=== PATIENT | female | born 1970 | race Caucasian/White ===

== ENCOUNTER 2020-10-31 09:50 | Outpatient (REF) | payer OTHER, SELFPAY ==
--- NOTE | ~2020-10-31 | XR_ITS ---
EXAMINATION: CERVICAL AND LUMBAR SPINE X-RAY CLINICAL INFORMATION: Pain COMPARISON: Lumbar spine x-ray March 2018 TECHNIQUE: 3 views of the lumbar spine and 3 views of the cervical spine FINDINGS: Cervical spine: Bone alignment is normal. No fracture or dislocation is seen. Disc spaces are normal. Prevertebral soft tissues are normal. Lumbar spine: There is mild curvature of the lower lumbar sacral spine to the left. Bone alignment is otherwise normal. No fracture or dislocation is seen. Disc spaces are normal. There may be mild lower lumbar spine facet arthritis. Paraspinal soft tissues are normal. XR/XR cervical spine 3V IMPRESSION: Cervical spine: Unremarkable exam. Lumbar spine: Mild curvature of the lower lumbar sacral spine to the left and lower lower lumbar spine facet arthritis.
--- NOTE | ~2020-10-31 | XR_ITS ---
EXAMINATION: CERVICAL AND LUMBAR SPINE X-RAY CLINICAL INFORMATION: Pain COMPARISON: Lumbar spine x-ray March 2018 TECHNIQUE: 3 views of the lumbar spine and 3 views of the cervical spine FINDINGS: Cervical spine: Bone alignment is normal. No fracture or dislocation is seen. Disc spaces are normal. Prevertebral soft tissues are normal. Lumbar spine: There is mild curvature of the lower lumbar sacral spine to the left. Bone alignment is otherwise normal. No fracture or dislocation is seen. Disc spaces are normal. There may be mild lower lumbar spine facet arthritis. Paraspinal soft tissues are normal. XR/XR lumbar spine 2-3V IMPRESSION: Cervical spine: Unremarkable exam. Lumbar spine: Mild curvature of the lower lumbar sacral spine to the left and lower lower lumbar spine facet arthritis.
--- NOTE | 2020-10-31 10:17 | ECG_ITS ---
Test Reason : PALPITATIONS Blood Pressure : / mmHG Vent. Rate : 057 BPM Atrial Rate : 057 BPM P-R Int : 164 ms QRS Dur : 078 ms QT Int : 466 ms P-R-T Axes : 017 054 056 degrees QTc Int : 453 ms Sinus bradycardia Otherwise normal ECG No previous ECGs available Referred By: Ju Hernandez Electronically Signed By:AURELIA MEDINA
[2020-10-31 11:36] LABS: TSH reflex Free T4 1.04 uIU/mL (0.32-4.0)
[2020-10-31 12:28] LABS: Glucose Urine UA NEG (NEG); Leukocyte Esterase Urine NEG (NEG); Nitrite Urine NEG (NEG); Urine Blood NEG (NEG); Urine Ketones NEG (NEG); Urine Protein NEG (NEG-TRACE)
[2020-10-31 12:29] LABS: Appearance Urine CLEAR; Color Urine YELLOW
== END 2020-10-31 09:51 | disposition home or self-care (01) ==
LOC: HO.LAB 09:50
PROVIDERS: PCP Internal Medicine; Visit Provider Internal Medicine
DX: R00.2 Palpitations (principal); M54.2 Cervicalgia; N39.3 Stress incontinence (female) (male); M54.5 Low back pain
CPT/HCPCS: 36415; 72040; 72100; 81003; 84443; 93005

== ENCOUNTER → 2020-12-06 15:27 | Outpatient (BNVA) | payer OTHER, SELFPAY | PROVIDERS: PCP Internal Medicine; Visit Provider Urology | DX: N39.3 Stress incontinence (female) (male) (principal) | CPT/HCPCS: 99202 ==

== ENCOUNTER 2020-12-21 13:55 | Outpatient (RCR) | payer OTHER, SELFPAY ==
--- NOTE | 2020-12-21 15:31 | MHC.PT.EP ---
[facility] [place] Office [place] Office [place] Office [address] Beulah Walls 140 [facility] [phone] F: [phone] F: [phone] F: [phone] F: [phone] Physical Therapy Plan of Care Date of Evaluation: Date of Surgery: Diagnosis: stress urinary incontinence Assessment: The patient arrived reporting stress urinary incontinence, but also described symptoms of urge incontinence. After granted patient consent an internal exam was performed and the patient was found to have decreased strength and coordination of her pelvic floor muscles. Increased Stage 2 Urethrocele noted with more descent in standing but it remained a stage 2. Additionally, the patient had poor PF endurance, and decreased ability to do a quick contraction of her pelvic floor. She did not exhibit a pre activation of her PFM with a cough. Strength 2/5 in 3rd level. The 1st level was 4/5. Urethra is at the introitus and then making penetration painful. The patient had no pain internally in the pelvic clock except near the urethra. The patient had poor endurance and the contraction dissipated after 3 seconds. She was able to do quick contractions, but with slow reaction time. 5 contractions in 10 seconds. Poor kinesthetic awareness of pelvic floor muscles. The patient will greatly benefit from Pelvic Floor PT in order to improve coordination, and strength of her pelvic floor muscles, as well as body mechanics training with pre activation of her PFM, Pre activation of her PFM for coughing, sneezing, and laughing when possible. Frequency and Duration: The patient will be seen 1x/week x 6 weeks Short Term Goals: 1. Pt to be able to correctly activate her PFM to allow improved support to bowel and bladder. 2. Pt to be able to demonstrate a pre contraction before a cough 3. Pt to be educated on bladder irritants in order to decrease UI triggers 4. Pt to complete a voiding log in order to accurately assess her bladder habits 5. Pt to be educated on behavior training to help decrease urge incontinence. Engraver Set Up Operator Goals: 1. The patient to be able to report no pain in her pelvis during house chore, and ADL's to help return to PLOF. 2. Pt to be able to improve PFM contraction to include a lift in the PFM to improve supportive function of the pelvic floor. 3. Pt to be able to return to normal sexual activity without pain. Treatment Plan: Modalities to reduce pain, spasms and effusion. Manual therapy to restore motion and function. Therapeutic exercise to improve strength and flexibility. Neuromuscular re-education for posture and balance. Therapeutic activities to return to functional activities of daily living. Electronically signed by: Monika Colindres PT DPT Please sign and return to therapist. Thank you for your referral.
== END 2020-12-28 08:00 | disposition home or self-care (01) ==
LOC: HO.PT 13:55
PROVIDERS: Visit Provider Urology
DX: M54.2 Cervicalgia (principal); M54.5 Low back pain
CPT/HCPCS: 97110; 97112; 97161

== ENCOUNTER 2021-04-08 11:01 | Outpatient (REF) | payer OTHER, SELFPAY ==
[2021-04-08 11:45] LABS: MANUAL DIFF FLAG NO
[2021-04-08 11:48] LABS: Basophils Percent Auto 0.4 % (0-2); Eosinophils Absolute Auto 0.1 X10*3/uL (0.0-0.4); Eosinophils Percent Auto 1.1 % (0-4); Hematocrit 41.5 % (37-47); Hemoglobin 13.1 g/dl (12.0-16.0); Imm Gran Abs Auto 0.01 X10*3/uL (0.00-0.03); Imm Gran Pct Auto 0.2 % (0.0-0.4); Lymphocytes Absolute Auto 0.9 X10*3/uL (1.2-4.9); Mean Corpuscular HGB Conc 31.6 g/dl (31.0-35.0); Mean Corpuscular Hemoglobin 26.1 pg (27.0-33.0); Mean Corpuscular Volume 82.8 fL (80-98); Mean Platelet Volume 9.8 fL (9.4-12.3); Monocytes Absolute Auto 0.3 X10*3/uL (0.1-1.2); Monocytes Percent Auto 6.3 % (2-11); Neutrophils Absolute Auto 3.3 X10*3/uL (2.0-8.3); Platelet Count 294 X10*3/uL (160-400); Red Blood Count 5.01 X10*6/uL (4.20-5.50); Red Cell Distribution Width 13.1 % (11.0-16.0); White Blood Count 4.6 X10*3/uL (4.8-10.8)
[2021-04-08 12:24] LABS: Alanine Aminotransferase 14 U/L (0-31); Albumin Level 4.2 g/dL (3.5-5.0); Alkaline Phosphatase 57 U/L (39-117); Anion Gap 12 (12-20); Aspartate Amino Transferase 16 U/L (5-31); Bilirubin Total 0.7 mg/dL (0.0-1.0); Blood Urea Nitrogen 9 mg/dL (9-16); Calcium 9.5 mg/dL (8.4-10.2); Carbon Dioxide 29 mmol/L (22-29); Chloride 105 mmol/L (96-108); Cholesterol 149 mg/dL; Estimated Glomerular Filt Rate > 60; Glucose Fasting 93 mg/dL (60-99); HDL Cholesterol 53 mg/dL; Iron 96 mcg/dL (30-160); LDL Cholesterol Calculated 81 mg/dl; Percent Iron Saturation 34 % (15-50); Potassium 4.5 mmol/L (3.3-5.1); Sodium 141 mmol/L (135-145); Total Iron Binding Capacity 284 mcg/dL (228-428); Total Protein 7.4 g/dL (6.5-8.0); Triglycerides 75 mg/dL; Unsaturated Iron Binding 188 ug/dL
[2021-04-08 12:59] LABS: Folate 13.4 ng/mL (> or = 4.0); Vitamin B12 303 pg/mL (200-900)
[2021-04-12 13:55] LABS: Vitamin D 25-OH, D2 <4 ng/mL; Vitamin D 25-OH, D3 34 ng/mL; Vitamin D 25-OH, Total 34 ng/mL (30-100)
== END 2021-04-08 11:02 | disposition home or self-care (01) ==
LOC: HO.LAB 11:01
PROVIDERS: PCP Internal Medicine; Visit Provider Internal Medicine
DX: E78.5 Hyperlipidemia, unspecified (principal); D64.9 Anemia, unspecified; E55.9 Vitamin D deficiency, unspecified; F32.9 Major depressive disorder, single episode, unspecified; E53.8 Deficiency of other specified B group vitamins
CPT/HCPCS: 36415; 80053; 80061; 82306; 82607; 82746; 83540; 85025

== ENCOUNTER 2021-06-19 11:13 | Outpatient (REF) | payer OTHER, SELFPAY ==
[2021-06-19 11:40] LABS: MANUAL DIFF FLAG NO
[2021-06-19 11:54] LABS: Basophils Percent Auto 0.4 % (0-2); Eosinophils Absolute Auto 0.1 X10*3/uL (0.0-0.4); Eosinophils Percent Auto 2.7 % (0-4); Hematocrit 39.9 % (37.0-47.0); Hemoglobin 12.7 g/dl (12.0-16.0); Imm Gran Abs Auto 0.02 X10*3/uL (0.00-0.03); Imm Gran Pct Auto 0.4 % (0.0-0.4); Lymphocytes Absolute Auto 0.7 X10*3/uL (1.2-4.9); Lymphocytes Percent Auto 15.1 % (20-40); Mean Corpuscular HGB Conc 31.8 g/dl (31.0-35.0); Mean Corpuscular Hemoglobin 26.1 pg (27.0-33.0); Mean Corpuscular Volume 81.9 fL (80.0-98.0); Mean Platelet Volume 9.4 fL (9.4-12.3); Monocytes Absolute Auto 0.4 X10*3/uL (0.1-1.2); Monocytes Percent Auto 8.1 % (2-11); Neutrophils Absolute Auto 3.3 x10*3/uL (2.0-8.3); Neutrophils Percent Auto 73.3 % (45-73); Platelet Count 249 X10*3/uL (160-400); Red Blood Count 4.87 X10*6/uL (4.20-5.50); Red Cell Distribution Width 13.2 % (11.0-16.0); White Blood Count 4.5 X10*3/uL (4.8-10.8)
[2021-06-19 12:29] LABS: Iron 64 mcg/dL (30-160); Percent Iron Saturation 21 % (15-50); Total Iron Binding Capacity 310 mcg/dL (228-428); Unsaturated Iron Binding 246 ug/dL
[2021-06-19 12:57] LABS: Folate 14.9 ng/mL (> or = 4.0); Vitamin B12 534 pg/mL (200-900)
[2021-06-23 00:46] LABS: Intrinsic Factor Antibodies Negative (Negative)
[2021-06-24 15:11] LABS: Parietal Cell Antibody 86.3 Unit (<=20.0)
== END 2021-06-19 11:14 | disposition home or self-care (01) ==
LOC: HO.LAB 11:13
PROVIDERS: Visit Provider Internal Medicine
DX: E53.8 Deficiency of other specified B group vitamins (principal); D64.9 Anemia, unspecified; Z20.822 Contact with and (suspected) exposure to COVID-19
CPT/HCPCS: 82607; 82746; 83516; 83540; 85025; 86340; U0003; U0005

== ENCOUNTER 2021-09-02 14:08 | Outpatient (REF) | payer OTHER, SELFPAY ==
[2021-09-02 14:48] LABS: Binax Internal Control QC Valid; Binax Now Covid-19 Ag Negative (Negative)
== END 2021-09-02 14:09 | disposition home or self-care (01) ==
LOC: HO.LAB 14:08
PROVIDERS: Visit Provider Internal Medicine
DX: Z20.822 Contact with and (suspected) exposure to COVID-19 (principal)
CPT/HCPCS: C9803

== ENCOUNTER 2022-02-15 00:17 | Emergency (ER) | payer OTHER, SELFPAY ==
[2022-02-15 01:14] VITALS: BP 119/68; PULSE 67; RESP 18; TEMP 36.6; O2SAT 99; BMI 25.6
--- NOTE | 2022-02-15 01:18 | ECG_ITS ---
Test Reason : CHEST PAIN Blood Pressure : / mmHG Vent. Rate : 063 BPM Atrial Rate : 063 BPM P-R Int : 146 ms QRS Dur : 076 ms QT Int : 456 ms P-R-T Axes : 057 035 050 degrees QTc Int : 466 ms Normal sinus rhythm Low voltage QRS Borderline ECG When compared with ECG of 31-OCT-2020 10:27, No significant change was found Referred By: Generic ED Physician Electronically Signed By:MILAGROS JAMESON MD
[2022-02-15 01:42] LABS: Basophils Percent Auto 0.4 % (0-2); Eosinophils Absolute Auto 0.1 X10*3/uL (0.0-0.4); Eosinophils Percent Auto 1.5 % (0-4); Hematocrit 35.4 % (37.0-47.0); Hemoglobin 11.3 g/dl (12.0-16.0); Imm Gran Abs Auto 0.02 X10*3/uL (0.00-0.03); Imm Gran Pct Auto 0.4 % (0.0-0.4); Lymphocytes Percent Auto 20.8 % (20-40); MANUAL DIFF FLAG NO; Mean Corpuscular HGB Conc 31.9 g/dl (31.0-35.0); Mean Corpuscular Hemoglobin 25.8 pg (27.0-33.0); Mean Corpuscular Volume 80.8 fL (80.0-98.0); Mean Platelet Volume 9.3 fL (9.4-12.3); Monocytes Absolute Auto 0.5 X10*3/uL (0.1-1.2); Neutrophils Absolute Auto 3.1 x10*3/uL (2.0-8.3); Neutrophils Percent Auto 65.9 % (45-73); Platelet Count 234 X10*3/uL (160-400); Red Blood Count 4.38 X10*6/uL (4.20-5.50); Red Cell Distribution Width 13.8 % (11.0-16.0); White Blood Count 4.7 X10*3/uL (4.8-10.8)
[2022-02-15 02:02] LABS: Alanine Aminotransferase 16 U/L (0-31); Albumin Level 4.1 g/dL (3.5-5.0); Alkaline Phosphatase 59 U/L (39-117); Anion Gap 13 (12-20); Aspartate Amino Transferase 19 U/L (5-31); Bilirubin Total 0.3 mg/dL (0.0-1.0); Blood Urea Nitrogen 17 mg/dL (9-16); Calcium 8.8 mg/dL (8.4-10.2); Carbon Dioxide 23 mmol/L (22-29); Chloride 105 mmol/L (96-108); Creatinine Clr Calc Pharmacy 83.5; Estimated Glomerular Filt Rate > 60; Glucose Random 93 mg/dL (60-115); Potassium 4.1 mmol/L (3.3-5.1); Sodium 137 mmol/L (135-145); Total Protein 7.3 g/dL (6.5-8.0); Troponin-I High Sensitivity < 3.5 ng/L (<3.5-17.0)
[2022-02-15 02:23] VITALS: BP 111/55; PULSE 63; RESP 16; TEMP 36.6; O2SAT 99
--- NOTE | 2022-02-15 03:01 | ED_ITS ---
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 She otherwise denies any fever, chills, shortness of breath, nausea, vomiting, or dizziness. Related Data Home Medications Medication Instructions Recorded Confirmed loratadine 10 mg tablet (Claritin) 10 mg PO DAILY PRN Allergy Symptoms 10/30/21 10/30/21 Previous Rx's Medication Instructions Recorded cyanocobalamin (vitamin B-12) 1,000 mcg PO BEDTIME #30 tabs 09/02/21 1,000 mcg tablet (Vitamin B-12) ferrous sulfate 325 mg (65 mg 325 mg PO BID #60 tabs 09/02/21 iron) tablet naproxen 500 mg tablet 500 mg PO BID PRN pain 30 days #60 09/02/21 tabs paroxetine HCl 20 mg tablet 20 mg PO DAILY 90 days #90 tabs 09/02/21 acyclovir 800 mg tablet 800 mg PO 5XD 7 days #35 tabs 02/15/22 gabapentin 300 mg capsule 300 mg PO TID 2 days #6 caps 02/15/22 Allergies Allergy/AdvReac Type Severity Reaction Status Date / Time No Known Allergies Allergy Verified 10/30/21 10:45 [No Known Allergies*] Review of Systems Review of Systems: Pertinent positives and negatives as stated in HPI 10 point review of systems is otherwise negative. PMFSH Past Medical History Source: nursing notes reviewed Medical History B12 deficiency COVID-19 Depression Low back pain Mild recurrent major depression Neck pain Palpitations MARVA (stress urinary incontinence, female) Surgical History History of laparoscopic cholecystectomy History of tubal ligation Family History Family History Father Chronic mental illness Alzheimers disease Mother Hypertension Maternal Aunt Breast cancer Paternal Aunt Cervical cancer Stomach cancer Pancreas cancer Sister Leukemia Social History Social History Household Members: Spouse and Family Housing: Apartment Are you a primary career portals teacher to a significant other at home: No Do you presently have visiting nurse or other home services: No Alcohol intake: current Alcohol intake frequency: holidays/special occasions only Alcohol type: beer Patient Tobacco Use Status: Never used Tobacco e-Cigarette/Vaping Use: Never Used Second Hand Smoke Exposure: No Use of substances other than those prescribed or required for medical reasons: No Advance Directives: No service: No Current occupational status: employed Current occupational exposures/hazards: No Physical Exam Vital Signs: Vital Signs: Last Vital Signs Temp 97.9 F 02/15/22 02:23 Pulse 63 02/15/22 02:23 Resp 16 02/15/22 02:23 BP 111/55 L 02/15/22 02:23 Pulse Ox 99 02/15/22 02:23 O2 Del Method 02/15/22 02:23 BMI result Body Mass Index 25.6 VITAL SIGNS: Reviewed. GENERAL: Well developed, well nourished, in no acute distress. HEAD: Normocephalic/atraumatic EYES: PERRLA, EOMI EARS: Ext canals without abnormality OROPHARYNX: no oral lesions noted, posterior pharynx clear LUNGS: Normal breath sounds. No adventitious sounds or accessory muscle use. SpO2<99> CARDIOVASCULAR: Regular rate and rhythm without noted murmurs ABDOMEN: Soft, non-tender, non-distended with bowel sounds. MUSCULOSKELETAL: No tenderness, deformities, or effusions noted on gross inspection. EXTREMITIES: No cyanosis, clubbing or edema. SKIN: Inspection of the skin reveals herpes zoster rash to the left upper extremity in various stages NEUROLOGIC: Alert and oriented x 4. Strength and sensation to light touch were grossly intact x 4. Course Course Course Narrative: 52-year-old female with history and clinical presentation most consistent with herpes zoster in review of all investigations otherwise negative for acute findings to include no evidence to suggest cardiac ischemia and PERC negative. Patient received analgesics as well as initial acyclovir here in the emergency room. MDM - Chest Pain Lab Data Result diagrams: 02/15/22 01:25 02/15/22 01:25 Labs: Lab Results 07/09/22 07/09/22 07/09/22 Range/Units 01:25 01:25 01:25 WBC 4.7 L (4.8-10.8) X10*3/uL RBC 4.38 (4.20-5.50) X10*6/uL Hgb 11.3 L (12.0-16.0) g/dl Hct 35.4 L (37.0-47.0) % MCV 80.8 (80.0-98.0) fL MCH 25.8 L (27.0-33.0) pg MCHC 31.9 (31.0-35.0) g/dl RDW 13.8 (11.0-16.0) % Plt Count 234 (160-400) X10*3/uL MPV 9.3 L (9.4-12.3) fL Immature Gran % (Auto) 0.4 (0.0-0.4) % Neut % (Auto) 65.9 (45-73) % Lymph % (Auto) 20.8 (20-40) % [place] % (Auto) 11.0 (2-11) % Eos % (Auto) 1.5 (0-4) % Baso % (Auto) 0.4 (0-2) % Lymph # (Auto) 1.0 L (1.2-4.9) X10*3/uL [place] # (Auto) 0.5 (0.1-1.2) X10*3/uL Eos # (Auto) 0.1 (0.0-0.4) X10*3/uL Baso # (Auto) 0.0 (0.0-0.2) X10*3/uL Abs Immat Gran (auto) 0.02 (0.00-0.03) X10*3/uL Absolute Neuts (auto) 3.1 (2.0-8.3) x10*3/uL Absolute Nucleated RBC 0.000 (0.0-0.012) X10*3/uL Nucleated RBC % (auto) 0.0 (0.0-0.2) /100WBC Sodium 137 (135-145) mmol/L Potassium 4.1 (3.3-5.1) mmol/L Chloride 105 (96-108) mmol/L Carbon Dioxide 23 (22-29) mmol/L Anion Gap 13 (12-20) BUN 17 H (9-16) mg/dL Creatinine 0.81 (0.5-1.4) mg/dL Estim Creat Clear Calc 83.5 Estimated GFR > 60 Random Glucose 93 (60-115) mg/dL Calcium 8.8 D (8.4-10.2) mg/dL Total Bilirubin 0.3 (0.0-1.0) mg/dL AST 19 (5-31) U/L ALT 16 (0-31) U/L Alkaline Phosphatase 59 (39-117) U/L Troponin I High Sens < 3.5 (<3.5-17.0) ng/L Total Protein 7.3 (6.5-8.0) g/dL Albumin 4.1 (3.5-5.0) g/dL ECG Data ECG #1: Attestation: I personally reviewed and interpreted this ECG as follows: Prior ECG tracings: not available for review Interpretation: NSR, HR-63, no STEMI, OK/QRS/QTC is within normal limits. Discharge Plan Discharge Clinical Impression: Herpes zoster Patient Disposition: Home, Self-Care Instructions: Acyclovir (By mouth), Shingles (ED) Additional Instructions: 1. Reanudar todos los medicamentos caseros seg?n lo prescrito. 2. Complete todo el curso de medicaci?n que le hayan recetado para ren herpes zoster. No se involucre con alda nietos hasta que la erupci?n se haya resuelto por completo. 3. Delmar un seguimiento con ren proveedor de atenci?n primaria el lunes para maddie reevaluaci?n. Regrese a la sammie de emergencias si los s?ntomas empeoran. Prescriptions: New acyclovir 800 mg tablet 800 mg PO 5XD 7 Days Qty: 35 0RF Rx Instructions: space evenly during waking hours gabapentin 300 mg capsule 300 mg PO TID 2 Days Qty: 6 0RF No Action loratadine [Claritin] 10 mg Tablet 10 mg PO DAILY PRN (Reason: Allergy Symptoms) cyanocobalamin (vitamin B-12) [Vitamin B-12] 1,000 mcg tablet 1,000 mcg PO BEDTIME Qty: 30 0RF ferrous sulfate 325 mg (65 mg iron) tablet 325 mg PO BID Qty: 60 0RF naproxen 500 mg tablet 500 mg PO BID PRN (Reason: pain) 30 Days Qty: 60 0RF paroxetine HCl 20 mg tablet 20 mg PO DAILY 90 Days Qty: 90 3RF Referrals: Ju Mack MD [Primary Care Provider] - Print Language: Palestinian
[2022-02-15] MEDS: Acyclovir 200 MG CAPSULE 800 MG PO (03:35)
[2022-02-15] MEDS: Acetaminophen 325 MG TABLET 975 MG PO (03:36)
[2022-02-15] MEDS: Ketorolac Tromethamine 15 MG/ML VIAL IM (03:42)
[2022-02-15 03:48] VITALS: BP 111/68; PULSE 66; O2SAT 99
== END 2022-02-15 04:00 | disposition home or self-care (01) ==
PROVIDERS: Emergency Provider Student in an Organized Health Care Education/Training Program; PCP Internal Medicine
DX: B02.8 Zoster with other complications (principal); R07.89 Other chest pain; R20.2 Paresthesia of skin; Z79.899 Other long term (current) drug therapy
CPT/HCPCS: 36415; 80053; 84484; 85025; 93005; 96372; 99284; J1885

== ENCOUNTER 2022-02-27 11:42 | Outpatient (REF) | payer OTHER, SELFPAY ==
--- NOTE | ~2022-02-27 | MM_ITS ---
EXAMINATION: MM SCREENING DIGITAL BREAST TOMOSYNTHESIS, BILATERAL CLINICAL INFORMATION: Screening. Asymptomatic. The lifetime risk of breast cancer based on the Tyrer-Cuzick Model is 9%. COMPARISON: Mammography: March 26, 2018 and November 17, 2016 TECHNIQUE: Digital breast tomosynthesis is performed in both the craniocaudal and mediolateral oblique views along with computer-aided detection (CAD). Synthesized 2D images are generated from the tomosynthesis. FINDINGS: The breasts are heterogeneously dense, which may obscure small masses (ACR BI-RADS breast composition Category c). There are no significant masses, abnormal calcifications, or other abnormalities. MM/MM tomosynthesis screening BI IMPRESSION: There are no significant changes from prior study. ASSESSMENT: BI-RADS 1: Negative RECOMMENDATION: Routine annual mammography screening. This patient's information was entered into a reminder system with a target due date for their next mammogram.
== END 2022-02-27 11:43 | disposition home or self-care (01) ==
LOC: HO.MAMMO 11:42
PROVIDERS: PCP Internal Medicine; Visit Provider Internal Medicine
DX: Z12.31 Encounter for screening mammogram for malignant neoplasm of breast (principal)
CPT/HCPCS: 77063; 77067

== ENCOUNTER → 2022-04-17 13:18 | Outpatient (BNVA) | payer OTHER, SELFPAY | PROVIDERS: PCP Internal Medicine; Visit Provider Surgery Vascular Surgery | DX: I83.12 Varicose veins of left lower extremity with inflammation (principal) | CPT/HCPCS: 99202 ==

== ENCOUNTER 2022-06-19 12:46 | Outpatient (REF) | payer OTHER, SELFPAY ==
--- NOTE | ~2022-06-19 | US_ITS ---
EXAMINATION: US VENOUS LOWER EXTREMITIES (REFLUX EXAM), BILATERAL CLINICAL INDICATION: Leg pain and varicose veins. COMPARISON: None TECHNIQUE: Color flow triplex imaging and compression Doppler was performed to evaluate both the deep and the superficial systems bilaterally. To evaluate the superficial system, the examination was performed in the upright position. Color-flow Doppler ultrasound and compression ultrasound were utilized. In addition, maneuvers were utilized to demonstrate reflux. FINDINGS: 1. DEEP VENOUS ULTRASOUND OF THE RIGHT LOWER EXTREMITY: Respiratory variation, normal compression and augmented flow are noted in the right common femoral vein as well as the right popliteal vein and there is no evidence of deep venous thrombosis at these locations. There is no evidence of reflux in the deep system in either the common femoral vein or the popliteal vein. There is no evidence of a Minor's cyst. 2. SUPERFICIAL ULTRASOUND WITH DOPPLER OF RIGHT LOWER EXTREMITY: The right great saphenous vein at the saphenofemoral junction measures 5.0 mm, at the proximal thigh 2.0 mm, at the mid thigh 2.0 mm, above the knee 2.0 mm, at the knee 2.0 mm, [id number] 2.0 mm, midcalf 1.0 mm and at the ankle measures 2.0 mm. There is no reflux demonstrated in the right great saphenous vein. Duplicated Right Great Saphenous Vein: There is a lateral accessory saphenous measuring 2 mm that does not reflux. The right small saphenous vein measures 3.0 mm and shows no reflux. Accessory Vein of Giacomini: None. Incompetent Perforators: 2 mm-sized perforators are present which do not demonstrate reflux. Varices Present: None. 3. DEEP VENOUS ULTRASOUND OF THE LEFT LOWER EXTREMITY: Respiratory variation, normal compression and augmented flow are noted in the left common femoral vein as well as the left popliteal vein and there is no evidence of deep venous thrombosis at these locations. There is no evidence of reflux in the deep system in either the common femoral vein or the popliteal vein. There is no evidence of a Minor's cyst. 4. SUPERFICIAL ULTRASOUND WITH DOPPLER OF LEFT LOWER EXTREMITY: Left great saphenous vein at the saphenofemoral junction measures 6.0 mm, at the proximal thigh 6.0 mm, at the mid thigh 2.0 mm, above the knee 1.0 mm, at the knee 2.0 mm, [id number]-[id number]-mirf 1.0 mm, midcalf 1.0 mm and at the ankle measures 1.0 mm. Segmental reflux is noted in the mid thigh for 0.4 seconds and in the mid calf for 0.8 seconds. Duplicated Left Great Saphenous Vein: There is a lateral accessory 3 mm saphenous without reflux. The left small saphenous vein measures 1.0 mm and shows no reflux. Accessory Vein of Giacomini: None. Incompetent Perforators: None. Varices Present: None. US/US venous duplex LE BI IMPRESSION: 1. No evidence of reflux or thrombus in the common femoral veins or popliteal veins bilaterally. 2. The saphenous systems are competent bilaterally with the exception of 2 areas of segmental reflux in the left great saphenous with reflux for under one second.
== END 2022-06-19 12:47 | disposition home or self-care (01) ==
LOC: HO.US 12:46
PROVIDERS: PCP Internal Medicine; Visit Provider Surgery Vascular Surgery
DX: I83.12 Varicose veins of left lower extremity with inflammation (principal)
CPT/HCPCS: 93970

== ENCOUNTER 2022-06-24 10:14 | Outpatient (REF) | payer OTHER, SELFPAY ==
[2022-06-24 12:02] LABS: Cholesterol 165 mg/dL; HDL Cholesterol 62 mg/dL; LDL Cholesterol Calculated 93 mg/dl; TSH reflex Free T4 1.23 uIU/mL (0.32-4.0); Triglycerides 51 mg/dL; Vitamin D 25-OH Total 29.6 ng/mL (>30)
== END 2022-06-24 10:15 | disposition home or self-care (01) ==
LOC: HO.LAB 10:14
PROVIDERS: PCP Internal Medicine; Visit Provider Nurse Practitioner Family
DX: Z00.00 Encounter for general adult medical examination without abnormal findings (principal); Z13.220 Encounter for screening for lipoid disorders; Z13.29 Encounter for screening for other suspected endocrine disorder
CPT/HCPCS: 36415; 80061; 82306; 84443

== ENCOUNTER → 2022-07-15 13:34 | Outpatient (BNVA) | payer OTHER, SELFPAY | PROVIDERS: PCP Internal Medicine; Visit Provider Surgery Vascular Surgery | DX: I83.12 Varicose veins of left lower extremity with inflammation (principal) | CPT/HCPCS: 99212 ==

== ENCOUNTER 2022-10-09 07:44 | Outpatient (REF) | payer OTHER, SELFPAY ==
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
== END 2022-10-09 07:45 | disposition home or self-care (01) ==
LOC: HO.XRAY 07:44
PROVIDERS: PCP Internal Medicine; Visit Provider Internal Medicine
DX: M54.2 Cervicalgia (principal); M54.6 Pain in thoracic spine
CPT/HCPCS: 72040; 72070

== ENCOUNTER → 2022-12-04 13:40 | Outpatient (BNVA) | payer OTHER, SELFPAY | PROVIDERS: PCP Internal Medicine; Visit Provider Nurse Practitioner Family | DX: M47.812 Spondylosis without myelopathy or radiculopathy, cervical region (principal); M47.816 Spondylosis without myelopathy or radiculopathy, lumbar region; M62.838 Other muscle spasm; M54.2 Cervicalgia; M54.6 Pain in thoracic spine | CPT/HCPCS: 99202 ==

== ENCOUNTER 2022-12-30 14:14 | Emergency (ER) | payer OTHER, SELFPAY ==
--- NOTE | ~2022-12-30 | XR_ITS ---
EXAMINATION: XR CHEST CLINICAL INFORMATION: Cough COMPARISON: None available. TECHNIQUE: 2 views of the chest were obtained. FINDINGS: No significant abnormality is noted involving the heart, lungs, mediastinum, bony thorax or soft tissues. XR/XR chest 2V IMPRESSION: Unremarkable examination.
[2022-12-30 14:26] VITALS: BP 109/62; PULSE 66; RESP 18; TEMP 37; O2SAT 99; BMI 27.4
--- NOTE | 2022-12-30 14:26 | ED_ITS ---
HPI - URI/Sore Throat General Chief Complaint: Upper Respiratory Symptoms Stated Complaint: Covid symptoms Time Seen by Provider: 12/30/22 14:31 Source: patient Mode of arrival: ambulatory History of Present Illness HPI Narrative: 52 yo F w/PMHx HLD, shingles, c/o subjective fever, chills, myalgias, sore throat, body aches, & dry cough since Thursday. Admits recently traveled to [place], returned on the . +sick contacts with similar symptoms. Denies SOB/CP, abdominal pain, pedal edema, difficulty/inability to swallow MD elicited complaint: cough, sore throat and rhinorrhea Related Data Previous Rx's Medication Instructions Recorded paroxetine HCl 20 mg tablet 20 mg PO DAILY 90 days #90 tabs 06/16/22 cyanocobalamin (vitamin B-12) 1,000 mcg PO BEDTIME #30 tabs 08/25/22 1,000 mcg tablet (Vitamin B-12) loratadine 10 mg tablet (Claritin) 10 mg PO DAILY PRN Allergy 08/25/22 Symptoms 90 days #90 tabs cholecalciferol (vitamin D3) 25 25 mcg PO DAILY #90 tabs 09/22/22 mcg (1,000 unit) tablet methocarbamol 500 mg tablet 500 mg PO BID PRN muscle spasm #60 12/04/22 tabs nabumetone 750 mg tablet 750 mg PO BID PRN pain #60 tabs 12/04/22 Allergies Allergy/AdvReac Type Severity Reaction Status Date / Time No Known Allergies Allergy Verified 12/04/22 13:52 [No Known Allergies*] Review of Systems Review of Systems: Constitutional: + Fever, + Chills, + myalgias ENT/Mouth: No Ear Pain, + Nasal Congestion, No Sinus Pain, No Hoarseness, + sore throat, + Rhinorrhea, No Swallowing Difficulty Cardiovascular: No Chest Pain, No SOB Respiratory: + Cough, No Sputum, No Wheezing Gastrointestinal: No Nausea, No Vomiting, No Diarrhea, No Constipation, No Abdominal pain Genitourinary: No Dysuria, No Urinary Frequency, No Hematuria Musculoskeletal: No joint pain, No Myalgias, No Joint Swelling Skin: No Skin Lesions, No rash Neuro: No Weakness Yes all other systems are reviewed and are negative Constitutional: Constitutional: Reports as per HPI PMFSH Past Medical History Attestation statement: The following information was validated with the patient. Source: old records reviewed Medical History B12 deficiency COVID-19 Depression Low back pain Mild recurrent major depression Neck pain Palpitations MARVA (stress urinary incontinence, female) Surgical History History of colonoscopy History of laparoscopic cholecystectomy History of tubal ligation Family History Family History Father Chronic mental illness Alzheimers disease Mother Hypertension Maternal Aunt Breast cancer Paternal Aunt Cervical cancer Stomach cancer Pancreas cancer Sister Leukemia Social History Social History Household Members: Spouse and Family Housing: Apartment Are you a primary medicare specialist to a significant other at home: No Do you presently have visiting nurse or other home services: No Alcohol intake: current Alcohol intake frequency: holidays/special occasions only Alcohol type: beer Patient Tobacco Use Status: Never used Tobacco e-Cigarette/Vaping Use: Never Used Second Hand Smoke Exposure: No Advance Directives: No Advance Directives Information Provided: No service: No Current occupational status: employed Current occupational exposures/hazards: No Cognitive needs: No Hearing needs: No Vision needs: Yes Physical Exam Vital Signs: Vital Signs: Last Vital Signs Temp 98.6 F 12/30/22 14:26 Pulse 66 12/30/22 14:26 Resp 18 12/30/22 14:26 BP 109/62 12/30/22 14:26 Pulse Ox 99 12/30/22 14:26 O2 Del Method Room Air 12/30/22 14:26 BMI result Body Mass Index 27.4 Const: General: cooperative, healthy appearing and no acute distress Orientation/consciousness: patient oriented x3 Limitations: no limitations HEENT: Head: Yes normal to inspection and Yes atraumatic Ears: hearing grossly normal bilaterally, external ears normal, TM's normal bilaterally and mastoids normal General nose exam: Normal external nose present Face and sinus: Yes normal facial exam Mouth: Normal oral and palatal mucosa present Throat: Yes posterior oropharynx normal, Yes tonsils normal, Yes uvula midline, No peritonsillar mass, No uvula laterally displaced and No uvular edema Eyes: General: appearance normal, both eyes and all related structures EOM: EOMs intact bilaterally Neck: Neck: Yes normal visual inspection and Yes no meningeal signs Resp: Effort & Inspection: normal respiratory effort, no respiratory distress and no stridor Auscultation: clear to auscultation bilaterally, no rhonchi and no wheezes Cardio: Rate: regular rate Heart sounds: S1 normal heart sound present and S2 normal heart sound present Skin: Rashes: no rashes Wounds: no wounds Neuro: General: patient oriented x3, tone normal and no meningeal signs Gait exam (Neuro): Normal gait present Extrem: General: Yes normal to inspection Course Course Course Narrative: -151--COVID-19 positive. Influenza and rapid strep negative XR chest 2V IMPRESSION: Unremarkable examination. Results discussed with patient including worrisome signs and symptoms and strict return precautions, and when to return to the emergency department. They verbalized understanding and feel safe for discharge at this time. Medical Decision Making Medical Decision Making [facility] Narrative: 52 yo F w/PMHx HLD, shingles, c/o subjective fever, chills, myalgias, sore throat, body aches, & dry cough since Thursday. On exam vital signs stable, NAD, nontoxic appearing, talking in complete sentences, lungs CTA. Concern for viral illness vs strep pharyngitis vs bronchitis or pneumonia. Low suspicion for ACS/PE. No evidence of WELLNESS PROGRAM MANAGER or mastoiditis. TMs WNL. Plan: COVID/FLU, rapid strep, CXR Please refer to course for remaining clinical decision making, interpretation of labs/imaging results, and discussions with consultants and/or family members. Differential Diagnosis Differential Diagnoses: The differential diagnosis associated with the presentation includes As above Lab Data [facility] Lab Attestation statement: I reviewed the patient's lab results. Labs: Lab Results 12/30/22 12/30/22 12/30/22 Range/Units 14:41 14:41 14:41 COVID-19 (CHARISMA) Positive A (Negative) COVID-19 Clin Com See Note Influenza Type A (SUZAN) Negative (Negative) Influenza Type B (SUZAN) Negative (Negative) Influenza A & B Note See Note S. pyogenes GrpA SUZAN Negative (Negative) Radiology Impression Discussion of test interpretation with radiology: I have reviewed the radiologi st's reading. External Record Review External record reviewed: Inpatient record, Office record, Outpatient record, Prior outpatient labs, Prior outpatient radiology, Primary care record and Outside ED record Tests considered The following testing was considered but not selected: As above Discharge Plan Discharge Clinical Impression: COVID-19 Patient Disposition: Home, Self-Care Instructions: COVID-19 (Coronavirus Disease 2019) (ED) Additional Instructions: At this time you will be okay for discharge. Please self isolate for 5 days. Do not expose yourself to others. You may not go to work or school. Please continue to follow cold instructions and wash your hands frequently. You may take Tylenol / Motrin as directed on the bottle for pain or fever. If you have constant or persistent shortness of breath, fever unresolved with medications, chest pain, or your unable to eat or drink please return to the ED CDC Guidelines for home isolation: - Stay away from others - WEAR A MASK if you are sick AND STAY HOME - Cover your mouth and nose with a tissue when you cough or sneeze. Dispose of tissues in a lined trash can and wash your hands immediately with soap and water for at least 20 seconds. If soap and water are not available, clean hands with alcohol-based hand manager beauty that contains at least 60% alcohol. - Clean your hands often with soap and water for at least 20 seconds - Avoid touching your eyes, nose and mouth with unwashed hands - Do not share dishes, drinking glasses, cups, eating utensils, towels, or b edding with other people in your home. After using these items, wash them thoroughly with soap and water or put in the urban gardening specialist. - Clean high-touch surfaces in your isolation area ( sick room and bathroom) every day; let a caregiver clean and disinfect high-touch surfaces in other areas of the home. Clean the area or item with soap and water or another detergent if it is dirty. Then, use a household disinfectant. - Limit contact with pets and animals: If you must care for a pet, wash your hands before and after interacting with them) En pham momento estar? raul para el christina. A?slese por 5 d?as. No te expongas a los dem?s. Es posible que no vaya al trabajo ni a la escuela. Contin?e siguiendo las instrucciones en fr?o y l?vese las millie con frecuencia. Puede ne Tylenol/Motrin evaristo se indica en el frasco para el dolor o la fiebre. Si tiene dificultad para respirar karla o persistente, fiebre que no se resuelve con medicamentos, dolor en el pecho o no puede comer o beber, regrese al servicio de urgencias. Pautas de los CDC para el aislamiento en el hogar: - Mant?ngase alejado de los dem?s. - USE MADDIE MASCARILLA si est? enfermo Y QU?DESE EN CASA - C?brase la boca y la nariz con un pa?uelo desechable al toser o estornudar. Deseche los pa?uelos en un bote de basura forrado y l?vese las millie inmediatamente con agua y jab?n wilian al menos 20 segundos. Si no hay agua y jab?n disponibles, l?vese las millie con un desinfectante para millie a base de alcohol que contenga al menos un 60 % de alcohol. - L?vese las millie con frecuencia con agua y jab?n wilian al menos 20 segundos. - Evite tocarse los ojos, la nariz y la boca con las millie sin mahesh - No comparta platos, vasos, tazas, utensilios para comer, toallas o ropa de cama con otras personas en ren hogar. Despu?s de usar estos art?culos, l?velos raul con agua y jab?n o col?quelos en el lavavajillas. - Limpie las superficies de alto contacto en ren ?emiliano de aislamiento ( cuarto de enfermos y ba?o) todos los d?as; permita que un cuidador limpie y desinfecte las superficies de alto contacto en otras ?reas del ricardo. Limpie el ?emiliano o art?culo con agua y jab?n u otro detergente si est? sucio. Luego, use un desinfectante dom?stico. - Limite el contacto con mascotas y animales: si debe cuidar maddie mascota, l?vese las millie antes y despu?s de interactuar con Prescriptions: No Action paroxetine HCl 20 mg tablet 20 mg PO DAILY 90 Days Qty: 90 3RF cholecalciferol (vitamin D3) 25 mcg (1,000 unit) tablet 25 mcg PO DAILY Qty: 90 0RF cyanocobalamin (vitamin B-12) [Vitamin B-12] 1,000 mcg tablet 1,000 mcg PO BEDTIME Qty: 30 0RF loratadine [Claritin] 10 mg tablet 10 mg PO DAILY PRN (Reason: Allergy Symptoms) 90 Days Qty: 90 1RF nabumetone 750 mg tablet 750 mg PO BID PRN (Reason: pain) Qty: 60 0RF methocarbamol 500 mg tablet 500 mg PO BID PRN (Reason: muscle spasm) Qty: 60 0RF Referrals: Ju Mack MD [Primary Care Provider] - 1 week Print Language: Faroese
[2022-12-30 15:06] LABS: COVID-19 Test Positive (Negative); IDNOW Serial# 9DB6401D
[2022-12-30 15:07] LABS: IDNOW Serial# 08D9AD1C; Strep A Nucleic Acid Negative (Negative)
[2022-12-30 15:11] LABS: IDNOW Serial# BCCEAD1C; Influenza A Negative (Negative); Influenza B2 Negative (Negative)
== END 2022-12-30 15:57 | disposition home or self-care (01) ==
PROVIDERS: Physician Assistant; Emergency Provider Emergency Medicine Emergency Medical Services; PCP Internal Medicine
DX: U07.1 COVID-19 (principal); R50.9 Fever, unspecified
CPT/HCPCS: 71046; 87502; 87635; 87651; 99282; 99283

== ENCOUNTER 2023-01-27 18:40 | Emergency (ER) | payer OTHER, SELFPAY ==
[2023-01-27 19:01] VITALS: BP 132/71; PULSE 82; RESP 18; TEMP 36.6; O2SAT 98; BMI 27.4
--- NOTE | 2023-01-27 19:01 | ED.GENADULT ---
HPI - General Adult General Chief complaint: Abdominal Pain Stated complaint: nausea, abd pain, dizziness Time Seen by Provider: 01/27/23 22:46 Source: patient Mode of arrival: ambulatory Limitations: no limitations History of Present Illness HPI narrative: Patient had increased alcohol 3 days ago since then been having pain in epigastric area got worse since yesterday associated with nausea and vomiting vomited 2 times today vomited only once patient is status post cholecystectomy no fever no chills no urinary symptom Related Data Previous Rx's Medication Instructions Recorded paroxetine HCl 20 mg tablet 20 mg PO DAILY 90 days #90 tabs 06/16/22 cyanocobalamin (vitamin B-12) 1,000 mcg PO BEDTIME #30 tabs 08/25/22 1,000 mcg tablet (Vitamin B-12) loratadine 10 mg tablet (Claritin) 10 mg PO DAILY PRN Allergy 08/25/22 Symptoms 90 days #90 tabs cholecalciferol (vitamin D3) 25 25 mcg PO DAILY #90 tabs 09/22/22 mcg (1,000 unit) tablet methocarbamol 500 mg tablet 500 mg PO BID PRN muscle spasm #60 12/04/22 tabs nabumetone 750 mg tablet 750 mg PO BID PRN pain #60 tabs 12/04/22 omeprazole 40 mg capsule,delayed 40 mg PO DAILY #20 caps 01/28/23 release sucralfate 1 gram tablet 1 g PO TID #30 tabs 01/28/23 Allergies Allergy/AdvReac Type Severity Reaction Status Date / Time No Known Allergies Allergy Verified 12/04/22 13:52 [No Known Allergies*] Review of Systems Review of Systems: Yes all other systems are reviewed and are negative [facility] Past Medical History Medical History B12 deficiency COVID-19 Depression Low back pain Mild recurrent major depression Neck pain Palpitations MARVA (stress urinary incontinence, female) Surgical History History of colonoscopy History of laparoscopic cholecystectomy History of tubal ligation Family History Family History Father Chronic mental illness Alzheimers disease Mother Hypertension Maternal Aunt Breast cancer Paternal Aunt Cervical cancer Stomach cancer Pancreas cancer Sister Leukemia Social History Social History Household Members: Spouse and Family Housing: Apartment Are you a primary clinical care coordinator to a significant other at home: No Do you presently have visiting nurse or other home services: No Alcohol intake: never Patient Tobacco Use Status: Never used Tobacco Smoked in Last 30 Days: No e-Cigarette/Vaping Use: Never Used Second Hand Smoke Exposure: No Use of substances other than those prescribed or required for medical reasons: No Advance Directives: No Advance Directives Information Provided: No Patient : No service: No Current occupational status: employed Current occupational exposures/hazards: No Cognitive needs: No Hearing needs: No Vision needs: Yes Physical Exam ED Vital Signs: Vital Signs - 24 hr 01/27/23 19:01 01/27/23 22:27 Temperature 98 F 98.0 F Pulse Rate 82 63 Respiratory Rate 18 17 Blood Pressure 132/71 123/62 Pulse Oximetry 98 100 Oxygen Delivery Method Room Air Room Air BMI result Body Mass Index 27.4 Appearance: Alert. Oriented X3. No acute distress. Eyes: No pallor it ENT: Pharynx normal. Oral Mucosa moist Neck: Normal inspection. Neck supple. CVS: Normal heart rate and rhythm. Pulses normal. Respiratory: No respiratory distress. Equal air entry bilateral, no wheezing/rales/rhonchi Abdomen: Soft and tender in epigastric area no rebound tenderness or guarding Bowel sounds are present, no mass palpable, no CVA tenderness Skin: Skin warm and dry. Normal skin color. Normal skin turgor. Extremities: No lower extremity edema. No calf tenderness Neuro: Oriented X 3. No motor deficit. Course Course Course Narrative: RME- 53 year old female presents for evaluation of abdominal pain, nausea, and headache. Plan for labs and a UA Medications Administered Discontinued Medications Generic Name Dose Route Start Last Admin Trade Name Freq PRN Reason Stop Dose Admin Al Hydroxide/Mg Hydroxide 30 ml 01/27/23 23:00 01/27/23 23:42 Magnesium Hydrox/Alum Hydrox 30 Ml Oral.Susp PO 01/27/23 23:01 30 ml ONCE ONE Administration Omeprazole 40 mg 01/27/23 23:00 01/27/23 23:42 Omeprazole 40 Mg Capsule. PO 01/27/23 23:01 40 mg ONCE ONE Administration Medical Decision Making Medical Decision Making [facility] Narrative: Patient liked the alcohol gastritis labs were stable no finding of pancreatitis abdomen is soft only mild tenderness in epigastric area which improved after Maalox and Prilosec as patient home patient taking p.o. fluids Lab Data [facility] Lab Attestation statement: I reviewed the patient's lab results. 01/27/23 19:21 01/27/23 19:21 Labs: Lab Results 01/27/23 01/27/23 01/27/23 Range/Units 19:21 19:21 19:21 WBC 5.1 (4.8-10.8) X10*3/uL RBC 4.74 (4.20-5.50) X10*6/uL Hgb 12.3 (12.0-16.0) g/dl Hct 38.7 (37.0-47.0) % MCV 81.6 (80.0-98.0) fL MCH 25.9 L (27.0-33.0) pg MCHC 31.8 (31.0-35.0) g/dl RDW 13.5 (11.0-16.0) % Plt Count 255 (160-400) X10*3/uL MPV 9.1 L (9.4-12.3) fL Immature Gran % (Auto) 0.2 (0.0-0.4) % Neut % (Auto) 70.8 (45-73) % Lymph % (Auto) 20.3 (20-40) % [place] % (Auto) 7.3 (2-11) % Eos % (Auto) 1.0 (0-4) % Baso % (Auto) 0.4 (0-2) % Lymph # (Auto) 1.0 L (1.2-4.9) X10*3/uL [place] # (Auto) 0.4 (0.1-1.2) X10*3/uL Eos # (Auto) 0.1 (0.0-0.4) X10*3/uL Baso # (Auto) 0.0 (0.0-0.2) X10*3/uL Abs Immat Gran (auto) 0.01 (0.00-0.03) X10*3/uL Absolute Neuts (auto) 3.6 (2.0-8.3) x10*3/uL Absolute Nucleated RBC 0.000 (0.0-0.012) X10*3/uL Nucleated RBC % (auto) 0.0 (0.0-0.2) /100WBC Sodium 141 (135-145) mmol/L Potassium 4.1 (3.3-5.1) mmol/L Chloride 108 (96-108) mmol/L Carbon Dioxide 27 (22-29) mmol/L Anion Gap 10 L (12-20) BUN 6 L (9-16) mg/dL Creatinine 0.69 (0.5-1.4) mg/dL Estim Creat Clear Calc 100.0 Estimated GFR > 60 Random Glucose 95 (60-115) mg/dL Calcium 9.6 D (8.4-10.2) mg/dL Total Bilirubin 0.5 (0.0-1.0) mg/dL AST 17 (5-31) U/L ALT 14 (0-31) U/L Alkaline Phosphatase 65 (39-117) U/L Total Protein 7.5 (6.5-8.0) g/dL Albumin 4.0 (3.5-5.0) g/dL Lipase 20 (8-78) U/L Urine Color Yellow Urine Appearance Clear Urine pH 7.5 (5.0-9.0) Ur Specific [place] 1.010 (1.005-1.025) Urine Protein Negative (Neg-Trace) mg/dL Urine Glucose (UA) Negative (Negative) mg/dL Urine Ketones Negative (Negative) mg/dL Urine Blood Negative (Negative) Urine Nitrite Negative (Negative) Ur Leukocyte Esterase Negative (Negative) Urine RBC 0-2 (0-2) /HPF Urine WBC 0-5 (0-5) /HPF Ur Squamous Epith Cells 0-2 (0-2) /HPF Urine Bacteria None Seen (None Seen) Hyaline Casts 0-2 (0-2) /LPF Discharge Plan Discharge Clinical Impression: Acute alcoholic gastritis Patient Disposition: Home, Self-Care Instructions: Gastritis (ED) Additional Instructions: Avoid fried and spicy food and alcohol drinks Medication as prescribed likely have alcoholic gastritis Report to the ER if worsening of the pain Evite los alimentos fritos y picantes y las bebidas alcoh?licas. La medicaci?n prescrita probablemente tenga gastritis alcoh?lica Informar a urgencias si empeora el dolor Prescriptions: New omeprazole 40 mg capsule,delayed release(DR/EC) 40 mg PO DAILY Qty: 20 0RF sucralfate 1 gram tablet 1 g PO TID Qty: 30 0RF No Action paroxetine HCl 20 mg tablet 20 mg PO DAILY 90 Days Qty: 90 3RF cholecalciferol (vitamin D3) 25 mcg (1,000 unit) tablet 25 mcg PO DAILY Qty: 90 0RF cyanocobalamin (vitamin B-12) [Vitamin B-12] 1,000 mcg tablet 1,000 mcg PO BEDTIME Qty: 30 0RF loratadine [Claritin] 10 mg tablet 10 mg PO DAILY PRN (Reason: Allergy Symptoms) 90 Days Qty: 90 1RF nabumetone 750 mg tablet 750 mg PO BID PRN (Reason: pain) Qty: 60 0RF methocarbamol 500 mg tablet 500 mg PO BID PRN (Reason: muscle spasm) Qty: 60 0RF Print Language: Uruguayan
[2023-01-27 19:27] LABS: MANUAL DIFF FLAG NO
[2023-01-27 19:30] LABS: Basophils Percent Auto 0.4 % (0-2); Eosinophils Absolute Auto 0.1 X10*3/uL (0.0-0.4); Hematocrit 38.7 % (37.0-47.0); Hemoglobin 12.3 g/dl (12.0-16.0); Imm Gran Abs Auto 0.01 X10*3/uL (0.00-0.03); Imm Gran Pct Auto 0.2 % (0.0-0.4); Lymphocytes Percent Auto 20.3 % (20-40); Mean Corpuscular HGB Conc 31.8 g/dl (31.0-35.0); Mean Corpuscular Hemoglobin 25.9 pg (27.0-33.0); Mean Corpuscular Volume 81.6 fL (80.0-98.0); Mean Platelet Volume 9.1 fL (9.4-12.3); Monocytes Absolute Auto 0.4 X10*3/uL (0.1-1.2); Monocytes Percent Auto 7.3 % (2-11); Neutrophils Absolute Auto 3.6 x10*3/uL (2.0-8.3); Neutrophils Percent Auto 70.8 % (45-73); Platelet Count 255 X10*3/uL (160-400); Red Blood Count 4.74 X10*6/uL (4.20-5.50); Red Cell Distribution Width 13.5 % (11.0-16.0); White Blood Count 5.1 X10*3/uL (4.8-10.8)
[2023-01-27 19:40] LABS: Alanine Aminotransferase 14 U/L (0-31); Alkaline Phosphatase 65 U/L (39-117); Anion Gap 10 (12-20); Aspartate Amino Transferase 17 U/L (5-31); Bilirubin Total 0.5 mg/dL (0.0-1.0); Blood Urea Nitrogen 6 mg/dL (9-16); Calcium 9.6 mg/dL (8.4-10.2); Carbon Dioxide 27 mmol/L (22-29); Chloride 108 mmol/L (96-108); Estimated Glomerular Filt Rate > 60; Glucose Random 95 mg/dL (60-115); Lipase 20 U/L (8-78); Potassium 4.1 mmol/L (3.3-5.1); Sodium 141 mmol/L (135-145); Total Protein 7.5 g/dL (6.5-8.0)
[2023-01-27 19:53] LABS: Appearance Urine Clear; Color Urine Yellow; Glucose Urine UA Negative (Negative); Leukocyte Esterase Urine Negative (Negative); Nitrite Urine Negative (Negative); PH 7.5 (5.0-9.0); Urine Blood Negative (Negative); Urine Ketones Negative (Negative); Urine Protein Negative (Neg-Trace)
[2023-01-27 20:00] LABS: Bacteria Urine None Seen (None Seen); Hyaline Casts Urine 0-2 /LPF (0-2); RBC Urine 0-2 /HPF (0-2); Squamous Epithelial Cell Urine 0-2 /HPF (0-2); WBC Urine 0-5 /HPF (0-5)
[2023-01-27 22:27] VITALS: BP 123/62; PULSE 63; RESP 17; TEMP 36.7; O2SAT 100
--- NOTE | 2023-01-27 22:55 | PC.NURSE ---
patient in bed with eyes open patient stated she is in pain 12/17 patient stated she had a BM today and it was normal patient is waiting to see the doctor patient will continue to be monitored for safety
[2023-01-27] MEDS: Omeprazole 40 MG CAPSULE.DR PO (23:42)
[2023-01-27] MEDS: Magnesium Hydrox/Alum Hydrox 30 ML ORAL.SUSP PO (23:42)
--- NOTE | 2023-01-28 00:57 | PC.NURSE ---
patient in the process of being discharged patient will be given all paperwork
== END 2023-01-28 01:06 | disposition home or self-care (01) ==
PROVIDERS: Physician Assistant; Emergency Provider Internal Medicine; PCP Internal Medicine
DX: K29.20 Alcoholic gastritis without bleeding (principal); Z79.899 Other long term (current) drug therapy
CPT/HCPCS: 36415; 80053; 81001; 83690; 85025; 99283; 99284

== ENCOUNTER 2023-03-23 12:47 | Outpatient (AMB) | payer OTHER, SELFPAY ==
[2023-03-23 12:53] VITALS: BP 118/70; PULSE 64; O2SAT 99; BMI 28.3
--- NOTE | 2023-03-23 12:53 | A.OFFPC_ITS ---
Vital Signs 03/23/23 12:53 Height 5 ft 6 in Weight 175 lb 8 oz BMI 28.3 BP 118/70 Blood Pressure Location Lt brachial Position Sitting Pulse 64 Pulse Source Pulse Oximeter Pulse Oximetry (%) 99 Oxygen Delivery Method Room Air Intake Visit Reasons: Annual Exam Intake Note: Patient is here today for a physical. 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 Accompanied by: Self / Same As Patient Allergies No Known Allergies [No Known Allergies*] Allergy (Verified 03/23/23 13:00) Medication List - Last Reconciled 03/23/23 by Ju Hernandez MD cholecalciferol (vitamin D3) 25 mcg PO DAILY cyanocobalamin (vitamin B-12) (Vitamin B-12) 1,000 mcg PO BEDTIME loratadine (Claritin) 10 mg PO DAILY PRN 90 days methocarbamol 500 mg PO BID PRN nabumetone 750 mg PO BID PRN omeprazole 40 mg PO DAILY paroxetine HCl 20 mg PO DAILY 90 days simethicone (Gas Relief (simethicone)) 125 mg PO BID-QID PRN sucralfate 1 g PO TID Tobacco use date assessed: 02/04/23 Dental Screening Dental Screen Date: 03/23/23 Did you have a dental visit in the last 12 months?: Yes Did you have a dental problem in the last 6 months where you did not have access to dental care?: No Was dental information given to patient?: Patient has dentist HPI HPI Comments History of Present Illness Details This is a 53-year-old female with mild recurrent major depression that comes for her physical exam. Depression stable with paroxetine. Last mammogram was February 2022 and I will order another mammogram. Last Pap smear was 2016 and she was referred to OBGYN. Last colonoscopy was 2017 and was normal and next colonoscopy should be 2027. No chest pain or shortness of breath. Has low back pain and is follow by pain management. [facility] Medical History B12 deficiency COVID-19 Depression Low back pain Mild recurrent major depression Neck pain Palpitations MARVA (stress urinary incontinence, female) Surgical History History of colonoscopy History of laparoscopic cholecystectomy History of tubal ligation Family History Father Chronic mental illness Alzheimers disease Mother Hypertension Maternal Aunt Breast cancer Paternal Aunt Cervical cancer Stomach cancer Pancreas cancer Sister Leukemia Social History (Updated 03/23/23 @ 13:06 by Ju Hernandez MD) Household Members: Spouse and Family Housing: Apartment Are you a primary career guidance technician to a significant other at home: No Do you presently have visiting nurse or other home services: No Alcohol intake: current Alcohol intake frequency: holidays/special occasions only Alcohol type: beer Patient Tobacco Use Status: Never used Tobacco e-Cigarette/Vaping Use: Never Used Second Hand Smoke Exposure: No service: No Current occupational status: employed Current occupational exposures/hazards: No Cognitive needs: No Hearing needs: No Vision needs: Yes Questionnaire Thrive Questionnaire Date Thrive assessed: 08/25/22 NAIDA-7 AMB Questionnaire NAIDA-7 Date NAIDA - 7 assessed: 08/25/22 Source: Developed by Drs. Chon Curtis, Ca Hillman, Aiden arita nd colleagues, with an educational ortega from [employer] Review of Systems Const All systems reviewed & are unremarkable except as noted in HPI and below Eyes Reports no additional complaints, Denies change in vision and Denies other visual disturbances Card Denies chest pain at rest, Denies chest pain with activity, Denies edema, Denies irregular heart rhythm, Denies claudication, Denies dyspnea, Denies dyspnea on exertion, Denies orthopnea, Denies paroxysmal nocturnal dyspnea and Denies slow heart rate Resp Denies cough, Denies dyspnea and Denies dyspnea on exertion GI Denies abdominal pain, Denies change in bowel habits, Denies excessive flatus, Denies nausea and Denies vomiting Denies urinary incontinence, Denies urinary hesitancy and Denies urinary urgency Musc Denies abnormal gait, Denies atrophy, Denies deformity and Denies limited range of motion Skin/Breast Denies bleeding lesions, Denies changing lesions and Denies rash Neuro Denies abnormal gait and Denies lack of coordination Physical exam (Primary Care) Vital Signs: Last Vital Signs Pulse 64 03/23/23 12:53 BP 118/70 03/23/23 12:53 Pulse Ox 99 03/23/23 12:53 Oxygen Delivery Method Room Air 03/23/23 12:53 BMI result Body Mass Index 28.3 Tobacco/Smoking Status: Tobacco use Status Tobacco use date assessed 02/04/23 03/23/23 12:59 Patient Tobacco Use Status Never used Tobacco 03/23/23 12:59 e-Cigarette/Vaping Use Never Used 03/23/23 12:59 Thrive Assessment: Date of Thrive Assessment Date Thrive assessed 08/25/22 03/23/23 12:59 Const Orientation/consciousness: patient oriented x3 HENMT Head: Yes normal to inspection, Yes normocephalic and Yes atraumatic Ears: external ears normal Eyes General: appearance normal, both eyes and all related structures Eyelids: Yes eyelids normal Conjunctivae: conjunctivae normal Neck Neck: Yes normal visual inspection and Yes supple Resp Effort & Inspection: normal respiratory effort Auscultation: clear to auscultation bilaterally Cardio Jugular venous distension: no JVD Rate: regular rate Rhythm: regular rhythm Heart sounds: S1 normal heart sound present and S2 normal heart sound present GI Inspection: Yes normal to inspection Palpation (GI): Soft to palpation and nontender Auscultation: normal bowel sounds Skin General skin exam: no rashes or lesions noted Neuro General: patient oriented x3 and no focal motor deficits Extrem General: Yes full ROM Psych Appearance: grossly normal Assessment and Plan Assessment & Plan (1) Physical exam: Code(s): Z00.00 - Encounter for general adult medical examination without abnormal findings Plan: Repeat in a year (2) Mild recurrent major depression: Code(s): F33.0 - Major depressive disorder, recurrent, mild Plan: * Continue paroxetine Orders: Orders MM screening mammo BI Today Z12.31 - Encounter for screening mammogram for malignant neoplasm of breast 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
== END 2023-03-23 13:12 | disposition home or self-care (01) ==
PROVIDERS: PCP Internal Medicine; Visit Provider Internal Medicine
DX: Z00.00 Encounter for general adult medical examination without abnormal findings (principal); F33.0 Major depressive disorder, recurrent, mild
CPT/HCPCS: 99396

== ENCOUNTER 2023-04-06 13:01 | Outpatient (REF) | payer OTHER, SELFPAY | END 2023-04-06 13:02 | disposition home or self-care (01) | LOC: HO.MAMMO 13:01 | PROVIDERS: PCP Internal Medicine; Visit Provider Internal Medicine | DX: Z12.31 Encounter for screening mammogram for malignant neoplasm of breast (principal) | CPT/HCPCS: 77063; 77067 ==

== ENCOUNTER → 2023-04-06 13:15 | Outpatient (BNV) | payer OTHER, SELFPAY | PROVIDERS: PCP Internal Medicine; Visit Provider Radiology Diagnostic Radiology | DX: Z12.31 Encounter for screening mammogram for malignant neoplasm of breast (principal) | CPT/HCPCS: 77063; 77067 ==

== ENCOUNTER 2024-03-07 16:00 | Outpatient (AMB) | payer OTHER, SELFPAY ==
--- NOTE | 2024-03-07 16:02 | MHC.OFFWIV ---
Intake Vital Signs 03/07/24 16:04 Height 5 ft 6 in Weight 175 lb BMI 28.2 BP 110/60 Blood Pressure Location Rt brachial Position Sitting Pulse 68 Pulse Source Pulse Oximeter Temp 98.4 F Temp Source Oral Pulse Oximetry (%) 98 Oxygen Delivery Method Room Air Intake Visit Reasons: lower back pain Intake Note: pt c/o Lower back pain. 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 Took ibuprofen and applied topical Bryson-Tobias with minimal improvement Denies red flag symptoms including new loss of bowel, bladder or saddle anesthesia [facility] Medical History B12 deficiency COVID-19 Depression Low back pain Mild recurrent major depression Neck pain Palpitations MARVA (stress urinary incontinence, female) Surgical History History of colonoscopy History of laparoscopic cholecystectomy History of tubal ligation Family History Father Chronic mental illness Alzheimers disease Mother Hypertension Maternal Aunt Breast cancer Paternal Aunt Cervical cancer Stomach cancer Pancreas cancer Sister Leukemia Social History (Updated 03/23/23 @ 13:06 by Ju Hernandez MD) Household Members: Spouse and Family Housing: Apartment Are you a primary career development coordinator/teacher to a significant other at home: No Do you presently have visiting nurse or other home services: No Alcohol intake: current Alcohol intake frequency: holidays/special occasions only Alcohol type: hard liquor Patient Tobacco Use Status: Never used Tobacco e-Cigarette/Vaping Use: Never Used Second Hand Smoke Exposure: No service: No Current occupational status: employed Current occupational exposures/hazards: No Cognitive needs: No Hearing needs: No Vision needs: Yes Review of Systems Const All systems reviewed & are unremarkable except as noted in HPI and below Physical Exam Vital Signs: Last Vital Signs Temp 98.4 F 03/07/24 16:04 Pulse 68 03/07/24 16:04 BP 110/60 03/07/24 16:04 Pulse Ox 98 03/07/24 16:04 Oxygen Delivery Method Room Air 03/07/24 16:04 BMI result Body Mass Index 28.2 General: awake, alert, oriented. Answers questions appropriately. Fully engaged in examination. Skin: warm, dry, intact HEENT: Normocephalic. Hearing intact. Cardiac: External chest normal in appearance. Respiratory: No cough, audible wheezing or stridor. Abdomen: without gross distension. MS: No obvious swelling or deformities. Able to stand on bilateral tiptoes and bilateral heels.? Able to transition from sit to stand unassisted. Ambulates with bilaterally normal heel strike and toe off Decreased range motion, pain with forward flexion to 60 degrees Tenderness to palpation bilateral lumbar musculature. Nontender over midline lumbar vertebrae and lumbar paraspinal muscles SLR negative bilaterally Nontender over bilateral PSIS Neurological: Oriented to person, place, time and situation. Thought process intact. Ambulates with antalgic gait Psychiatric: Appropriate mood and affect. Good judgment and insight. Assessment & Plan Assessment & Plan (1) Lumbar strain: Code(s): S39.012A - Strain of muscle, fascia and tendon of lower back, initial encounter Plan Methocarbamol 500 mg p.o. t.i.d.. Patient advised on cautions for use Diclofenac 50 mg p.o. b.i.d.. Take with food, do not take with any other nonsteroidal anti-inflammatory medications. Rest, gentle stretching, apply heat Follow up with PCP, if no improvement may benefit from referral to physical therapy. All questions and concerns were answered, patient agrees with the plan. Follow up with PCP or return here for any new or worsening symptoms. Medications: New methocarbamol No driving while taking this medication. Do not take with alcohol 500 mg PO TID 30 tabs 0RF diclofenac potassium Take with food. Do not take with any other nonsteroidal anti-inflammatory medications. 50 mg PO BID 30 tabs 0RF Coding Level of Care Code Est Pt Level 3 (34092) Diagnoses Lumbar strain S39.012A
[2024-03-07 16:04] VITALS: BP 110/60; PULSE 68; TEMP 36.9; O2SAT 98; BMI 28.2
== END 2024-03-07 16:33 | disposition home or self-care (01) ==
PROVIDERS: PCP Internal Medicine; Visit Provider Registered Nurse Emergency
DX: S39.012A Strain of muscle, fascia and tendon of lower back, initial encounter (principal)
CPT/HCPCS: 99213

== ENCOUNTER 2024-05-23 14:24 | Outpatient (AMB) | payer OTHER, SELFPAY ==
[2024-05-23 14:30] VITALS: BP 112/80; BMI 28.1
--- NOTE | 2024-05-23 14:30 | A.OFFPC_ITS ---
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: No Accompanied by: Self / Same As Patient Allergies No Known Allergies [No Known Allergies*] Allergy (Verified 05/23/24 14:56) Medication List - Last Reconciled 05/23/24 by Ju Hernandez MD cholecalciferol (vitamin D3) 25 mcg PO DAILY cyanocobalamin (vitamin B-12) (Vitamin B-12) 1,000 mcg PO BEDTIME diclofenac potassium 50 mg PO BID loratadine (Claritin) 10 mg PO DAILY PRN 90 days methocarbamol 500 mg PO TID paroxetine HCl 20 mg PO DAILY 90 days Tobacco use date assessed: 05/23/24 Dental Screening Dental Screen Date: 05/23/24 Did you have a dental visit in the last 12 months?: Yes Did you have a dental problem in the last 6 months where you did not have access to dental care?: No Was dental information given to patient?: Patient has dentist HPI HPI Comments History of Present Illness Details This is a 54-year-old female with mild recurrent major depression that comes for her physical exam. Depression stable with medications. Mammogram was over a year ago and I will order another mammogram. Colonoscopy done 2017 and was normal. Next colonoscopy should be 2027. Pap smear done over 4 years ago and will be referred to OBGYN. She complains of bilateral hand and leg paresthesias that has been present for few months. I will order a nerve conduction study. REPLACED BY [facility] Medical History (Updated 05/23/24 @ 15:09 by Ju Hernandez MD) Mild recurrent major depression MARVA (stress urinary incontinence, female) Low back pain Neck pain Palpitations COVID-19 Depression B12 deficiency Surgical History History of colonoscopy History of tubal ligation History of laparoscopic cholecystectomy Family History Father Chronic mental illness Alzheimers disease Mother Hypertension Maternal Aunt Breast cancer Paternal Aunt Cervical cancer Stomach cancer Pancreas cancer Sister Leukemia Social History Household Members: Spouse and Family Housing: Apartment Are you a primary home health care case manager to a significant other at home: No Do you presently have visiting nurse or other home services: No Alcohol intake: current Alcohol intake frequency: holidays/special occasions only Alcohol type: hard liquor Patient Tobacco Use Status: Never used Tobacco e-Cigarette/Vaping Use: Never Used Second Hand Smoke Exposure: No service: No Current occupational status: employed Current occupational exposures/hazards: No Cognitive needs: No Hearing needs: No Vision needs: Yes Questionnaire PHQ-9 Over the last 2 weeks, how often have you been bothered by any of the following problems? 1. Little interest or pleasure in doing things: not at all 2. Feeling down, depressed, or hopeless: several days 3. Trouble falling or staying asleep, or sleeping too much: not at all 4. Feeling tired or having little energy: nearly every day 5. Poor appetite or overeating: more than half the days 6. Feeling bad about yourself - or that you are a failure or have let yourself or your family down: not at all 7. Trouble concentrating on things, such as reading the newspaper or watching television: not at all 8. Moving or speaking so slowly that other people could have noticed. Or the opposite - being so fidgety or restless that you have been moving around a lot more than usual: not at all 9. Thoughts that you would be better off or of hurting yourself in some way: not at all Total score: 6 Depression Screening Interpretation: Positive Depression Screening Follow-up: Existing condition and Follow-up Visit Requested Depression Screening Done: Yes 71419 - PHQ-9 Billing: Yes Source: Developed by Drs. Chon Curtis, Ca Hillman, Aiden Lew and colleagues, with an educational ortega from [employer]. Thrive Questionnaire Date Thrive assessed: 05/23/24 I am a: Patient What is your living situation today?: I have a steady place to live Within the past 12 months, did the food you bought not last and you didn't have the money to get more?: Never true Within the past 12 months, did you worry whether your food would run out before you got money to buy more?: Never true Do you have trouble paying for medicines?: No Do you have trouble getting transportation to medical appointments?: No Do you have trouble paying your heating and electricity bill?: No Do you have trouble taking care of your child, family member or friend?: No Do you have trouble with day-to-day activities such as bathing, preparing meals, shopping, managing finances, etc.?: No Are you currently unemployed and looking for a job?: No Are you interested in more education?: No Please select the resources that you would like help with: None Currently or been in a relationship where the following occur: No concerns reported THRIVE Score: 0 AUDIT C Alcohol Use Questionnaire (AUDIT-C) 1. How often do you have a drink containing alcohol?: Monthly or less 2. How many drinks containing alcohol do you have on a typical day when you are drinking?: 1 or 2 3. How often do you have six or more drinks on one occasion?: Never Total Score: 1 Score Reviewed/Action Taken: No NAIDA-7 AMB Questionnaire NAIDA-7 Date NAIDA - 7 assessed: 05/23/24 Feeling nervous, anxious, or on edge: 1 = Several days Not being able to stop or control worryin = Not at all Worrying too much about different things: 2 = More than half the days Trouble relaxin = Not at all Being so restless that it is hard to sit still: 0 = Not at all Becoming easily annoyed or irritable: 0 = Not at all Feeling afraid as if something awful might happen: 0 = Not at all Total NAIDA-7 score (0-4 normal; 5-9 mild; 10-14 moderate; 15-21 severe): 3 Source: Developed by Drs. Chon Curtis, Ca Hillman, Aiden Lew and colleagues, with an educational ortega from [employer]. NAIDA-7 Assessment Billing NAIDA-7 Assessment Tool: NAIDA-7 Assessment 75346 Review of Systems Const All systems reviewed & are unremarkable except as noted in HPI and below Card Denies chest pain at rest, Denies chest pain with activity, Denies edema, Denies irregular heart rhythm, Denies claudication, Denies dyspnea, Denies dyspnea on exertion, Denies orthopnea, Denies paroxysmal nocturnal dyspnea and Denies slow heart rate Resp Denies cough, Denies dyspnea and Denies dyspnea on exertion Musc Reports numbness Neuro Reports numbness Physical exam (Primary Care) Vital Signs: Last Vital Signs BP 112/80 05/23/24 14:30 BMI result Body Mass Index 28.1 BMI Assessment/Plan discussion: High BMI High, discussed plan: lifestyle, weight reduction, dietary and physical activity Tobacco/Smoking Status: Tobacco use Status Tobacco use date assessed 05/23/24 05/23/24 14:38 Patient Tobacco Use Status Never used Tobacco 05/23/24 14:32 e-Cigarette/Vaping Use Never Used 05/23/24 14:32 PHQ-9: PHQ-9 Score PHQ-9: Total score 6 05/23/24 15:12 Depression Screening Interpretation: Positive Depression Screening Follow-up: Existing condition and Follow-up Visit Requested Thrive Assessment: Date of Thrive Assessment Date Thrive assessed 05/23/24 05/23/24 14:38 Currently or been in a relationship where the following occur: No concerns reported HENMT Head: Yes normal to inspection, Yes normocephalic and Yes atraumatic Ears: external ears normal Eyes General: appearance normal, both eyes and all related structures Eyelids: Yes eyelids normal Conjunctivae: conjunctivae normal Neck Neck: Yes normal visual inspection and Yes supple Resp Effort & Inspection: normal respiratory effort Auscultation: clear to auscultation bilaterally Cardio Jugular venous distension: no JVD Rate: regular rate Rhythm: regular rhythm Heart sounds: S1 normal heart sound present and S2 normal heart sound present GI Inspection: Yes normal to inspection Palpation (GI): Soft to palpation and nontender Auscultation: normal bowel sounds Skin General skin exam: no rashes or lesions noted Neuro General: no focal motor deficits Extrem General: Yes full ROM Psych Appearance: grossly normal Office Procedures Flu Questionnaire Does the patient have a severe egg allergy?: No Does the patient have severe life threatening allergies?: No Does the patient have a fever or illness today?: No Has the patient ever had Guillain-Newington Syndrome?: No Has the patient ever had any past reaction to a flu shot?: No Immunizations Fluarix Triv 5410-8090 (PF) 45 mcg (15 mcg x 3)/0.5 mL IM syringe Performing Provider: Ju Hernandez MD [facility] Administered by: KD Cullen on 05/23/24 15:09 Dose Route Admin Location Dispensed Lot Number Expiration Date NDC Knotter Hand 0.5 mL IM Left Deltoid 0.5 mL [id number] 02/06/25 [id number] [employer] Mobile VIS Given Date VIS Provided VIS Publication Date 05/23/24 Single Vaccine 21 Eligibility Eligibility Date Funding Source Not [facility] Eligible 05/23/24 Private Coding Level of Care Code Est Pt Level 3 (74957) Est Pt Prev Care 40-64y(01742) Diagnoses Physical exam Z00.00 Mild recurrent major depression F33.0 Hand paresthesia R20.2 Leg paresthesia R20.2 Additional Codes NAIDA-7 Assessment Billing - NAIDA-7 Assessment Tool: NAIDA-7 Assessment 68155 ([id number]) Time Spent (min) 33 Assessment & Plan Assessment & Plan (1) Physical exam: Code(s): Z00.00 - Encounter for general adult medical examination without abnormal findings Category: Medical Plan: Repeat in a year. (2) Mild recurrent major depression: Code(s): F33.0 - Major depressive disorder, recurrent, mild Category: Medical Plan: Continue paroxetine. (3) Hand paresthesia: Code(s): R20.2 - Paresthesia of skin Category: Medical Plan: Nerve conduction study ordered. (4) Leg paresthesia: Code(s): R20.2 - Paresthesia of skin Category: Medical Plan: Nerve conduction study ordered. Orders: Orders Comprehensive [place]. 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
== END 2024-05-23 15:19 | disposition home or self-care (01) ==
PROVIDERS: PCP Internal Medicine; Visit Provider Internal Medicine
DX: Z00.00 Encounter for general adult medical examination without abnormal findings (principal); F33.0 Major depressive disorder, recurrent, mild; R20.2 Paresthesia of skin

== ENCOUNTER → 2024-05-23 14:24 | Outpatient (BNVA) | payer OTHER, SELFPAY | PROVIDERS: PCP Internal Medicine; Visit Provider Internal Medicine | DX: Z00.01 Encounter for general adult medical examination with abnormal findings (principal); F33.0 Major depressive disorder, recurrent, mild; R20.2 Paresthesia of skin; Z79.899 Other long term (current) drug therapy; Z23 Encounter for immunization | CPT/HCPCS: 90471; 90656; 96127 ==

== ENCOUNTER 2024-06-03 09:40 | Outpatient (REF) | payer OTHER, SELFPAY ==
--- NOTE | ~2024-06-03 | MM_ITS ---
EXAMINATION: MM SCREENING DIGITAL BREAST TOMOSYNTHESIS, BILATERAL CLINICAL INFORMATION: Screening. Asymptomatic. COMPARISON: Mammography: Comparison is made with available priors TECHNIQUE: Digital breast mammography with tomosynthesis is performed in both the craniocaudal and mediolateral oblique views along with computer-aided detection (CAD). FINDINGS: There are scattered areas of fibroglandular density (ACR BI-RADS breast composition Category b). There are no significant masses, abnormal calcifications, or other abnormalities. MM/MM tomosynthesis screening BI IMPRESSION: No mammographic evidence of malignancy. ASSESSMENT: BI-RADS BI-RADS 1 - Negative RECOMMENDATION: Routine annual mammography screening. 1 year F/U This examination should not preclude the clinical evaluation of a suspicious palpable abnormality. This patient's information was entered into a reminder system with a target due date for their next mammogram. Electronically signed by: Kelly Garcia DO 06/14/2024 08:47 AM VICK
== END 2024-06-03 09:41 | disposition home or self-care (01) ==
LOC: HO.MAMMO 09:40
PROVIDERS: PCP Internal Medicine; Visit Provider Internal Medicine
DX: Z12.31 Encounter for screening mammogram for malignant neoplasm of breast (principal)
CPT/HCPCS: 77063; 77067

== ENCOUNTER → 2024-06-03 09:45 | Outpatient (BNV) | payer OTHER, SELFPAY | PROVIDERS: PCP Internal Medicine; Visit Provider Internal Medicine | DX: Z12.31 Encounter for screening mammogram for malignant neoplasm of breast (principal) | CPT/HCPCS: 77063; 77067 ==

== ENCOUNTER 2024-06-22 13:21 | Outpatient (REF) | payer OTHER, SELFPAY ==
--- NOTE | 2024-06-22 13:25 | EMG_ITS ---
Chief complaint: Separate complaints of hand numbness and feet numbness, chronic neck and back pain nonradicular Reason for referral: Evaluate for neuropathy Referred by: Dr. Ju Hernandez Procedure done: Bilateral upper and lower extremity NCS, EMG Precautions and/or limitations: None Seen with translator/interpreter. The limb temperature was monitored continuously and remained between 32-36 degrees C during the performance of the NCS. Nerve Conduction Studies Anti Sensory Summary Table ?Stim Site NR Onset (ms) Norm Onset (ms) Peak (ms) Norm Peak (ms) O-P Amp (?V) Norm O-P Amp Site1 Site2 Delta-0 (ms) Dist (cm) Rick (m/s) Norm Rick (m/s) Left Median Anti Sensory (2nd Digit) Wrist ? 2.4 3.3 <3.6 38.4 >10 Wrist 2nd Digit 2.4 14.0 58 Right Median Anti Sensory (2nd Digit) Wrist ? 2.1 3.6 <3.6 32.4 >10 Wrist 2nd Digit 2.1 14.0 67 Left Sural Anti Sensory (Lat Mall) Calf ? 0.8 3.6 <4.0 11.4 >5.0 Calf Lat Mall 0.8 14.0 175 Right Sural Anti Sensory (Lat Mall) Calf ? 2.1 3.4 <4.0 11.5 >5.0 Calf Lat Mall 2.1 14.0 67 Left Ulnar Anti Sensory (5th Digit) Wrist ? 2.9 3.3 <3.7 19.0 >15.0 Wrist 5th Digit 2.9 14.0 48 Right Ulnar Anti Sensory (5th Digit) Wrist ? 2.4 3.2 <3.7 32.4 >15.0 Wrist 5th Digit 2.4 14.0 58 Motor Summary Table ?Stim Site NR Onset (ms) Norm Onset (ms) O-P Amp (mV) Norm O-P Amp iAmp (mV) Amp (1st) (%) Site1 Site2 Delta-0 (ms) Dist (cm) Rick (m/s) Norm Rick (m/s) Left Median Motor (Abd Poll Brev) Wrist ? 2.8 <3.9 9.5 >4.5 11.3 100.0 Elbow Wrist 3.4 19.0 56 >45 Elbow ? 6.2 8.9 11.0 93.7 Right Median Motor (Abd Poll Brev) Wrist ? 3.2 <3.9 10.3 >4.5 12.6 100.0 Elbow Wrist 3.3 19.0 58 >45 Elbow ? 6.5 10.3 12.6 100.0 Right Peroneal Motor (Ext Dig Brev) Ankle ? 3.8 <4.0 6.5 >2.5 8.0 100.0 Ankle Ext Dig Brev 3.8 0.0 B Fib ? 10.0 5.8 7.1 89.2 B Fib Ankle 6.2 31.0 50 >40 Poplt ? 10.9 6.0 7.5 92.3 Poplt B Fib 0.9 6.0 67 >40 Left Tibial Motor (Abd Bonilla Brev) Ankle ? 4.5 <5 9.2 >2.5 12.6 100.0 Ankle Abd Bonilla Brev 4.5 0.0 Knee ? 12.4 8.8 12.5 95.7 Knee Ankle 7.9 36.0 46 >40 Right Tibial Motor (Abd Bonilla Brev) Ankle ? 2.8 <5 15.0 >2.5 21.3 100.0 Ankle Abd Bonilla Brev 2.8 0.0 Knee ? 11.6 11.7 16.1 78.0 Knee Ankle 8.8 30.0 40 >40 Left Ulnar Motor (Abd Dig Minimi) Wrist ? 2.8 <3.0 8.9 >5 10.4 100.0 B Elbow Wrist 2.7 17.0 63 >45 B Elbow ? 5.5 7.7 9.1 86.5 A Elbow B Elbow 1.3 10.0 77 >45 A Elbow ? 6.8 6.1 7.3 68.5 Right Ulnar Motor (Abd Dig Minimi) Wrist ? 2.4 <3.0 10.0 >5 12.1 100.0 B Elbow Wrist 2.9 18.0 62 >45 B Elbow ? 5.3 10.7 13.1 107.0 A Elbow B Elbow 1.3 10.0 77 >45 A Elbow ? 6.6 10.6 13.0 106.0 EMG ?Side Muscle Nerve Root Ins Act Fibs Psw Amp Dur Poly Recrt Int Pat Comment Right 1stDorInt Ulnar C8-T1 Nml Nml Nml Nml Nml 0 Nml Complete Right FlexCarRad Median C6-7 Nml Nml Nml Nml Nml 0 Nml Complete Right Biceps Musculocut C5-6 Nml Nml Nml Nml Nml 0 Nml Complete Right Triceps Radial C6-7-8 Nml Nml Nml Nml Nml 0 Nml Complete Right Deltoid Axillary C5-6 Nml Nml Nml Nml Nml 0 Nml Complete Right AbdHallucis MedPlantar S1-2 Nml Nml Nml Nml Nml 0 Nml Complete Right AntTibialis Dp Br Peron L4-5 Nml Nml Nml Nml Nml 0 Nml Complete Right PostTibialis Tibial L5, S1 Nml Nml Nml Nml Nml 0 Nml Complete Right MedGastroc Tibial S1-2 Nml Nml Nml Nml Nml 0 Nml Complete Right VastusMed Femoral L2-4 Nml Nml Nml Nml Nml 0 Nml Complete FINDINGS: All motor and sensory nerves tested showed normal latencies, amplitudes and conduction velocities. Concentric needle EMG was performed in selected muscles of the right upper and lower extremities. Study did not reveal signs of electric abnormalities as shown in the table above. IMPRESSION: 1. This is a normal study. 2. There is no electrodiagnostic evidence for median neuropathy, ulnar neuropathy, brachial plexopathy, or cervical radiculopathy. 3. There is no electrodiagnostic evidence for peroneal neuropathy, tibial neuropathy, lumbosacral plexopathy, lumbar radiculopathy, or peripheral neuropathy. Thank you for your kind referral. Flor Martines MD, SISI Board Certified, [place] Board [employer] and Rehabilitation (ABPMR) Board Certified, [place] Board of Electrodiagnostic Medicine (ABEM) CODIN 97640 x 2 MTDD
== END 2024-06-22 13:22 | disposition home or self-care (01) ==
LOC: HO.NEURO 13:21
PROVIDERS: PCP Internal Medicine; Visit Provider Internal Medicine
DX: R20.2 Paresthesia of skin (principal)
CPT/HCPCS: 95886; 95913

== ENCOUNTER → 2024-06-22 13:25 | Outpatient (BNV) | payer OTHER, SELFPAY | PROVIDERS: PCP Internal Medicine; Visit Provider Physical Medicine & Rehabilitation | DX: R20.0 Anesthesia of skin (principal); R20.2 Paresthesia of skin | CPT/HCPCS: 95886; 95913 ==

== ENCOUNTER 2024-09-16 11:55 | Outpatient (REF) | payer OTHER, SELFPAY ==
--- OUTSIDE RECORDS SUMMARY | 2024-09-16 12:58 | XMS_ITS | Clinical Summary ---
Author Organization [employer] Address [address] [place] [address] Care Team Providers Care Field Advisor Name Role Phone Unavailable Primary Care Provider Unavailabl e Allergies No known active allergies Medications methocarbamol (Robaxin) 500 MG tablet PLEASE SEE ATTACHED FOR DETAILED DIRECTIONS 4 Active diclofenac (Cataflam) 50 MG tablet PLEASE SEE ATTACHED FOR DETAILED DIRECTIONS 4 Active Active Problems No known active problems Social History Tobacco Use Types Packs/Day Years Used Date Smoking Tobacco: Never Smokeless Tobacco: Never Tobacco Cessation:Counseling Given: Not Answered Comments Unknown Sex and Gender Information Value Date Recorded Sex Assigned at Female 06/09/2022 10:31 AM EDT Legal Sex Female 10:31 AM EDT Gender Identity Choose not to disclose 2 10:31 AM EDT Sexual Orientation Choose not to disclose 2021 10:31 AM EDT Plan of Treatment Health Maintenance Due Date Last Done Comments CT Colonography 1971 Colonoscopy 1971 Colorectal Cancer Screening 1971 Depression Screening 1971 FIT DNA/Cologuard 1971 FIT 1971 FOBT 1971 HIV Screening 1971 SDOH Screening 1971 Sigmoidoscopy 1971 Alcohol/Substance Use Screening 1983 Hepatitis C Screening 1989 Hepatitis B Vaccines (1 of 3 - 19+ 3-dose series) 1990 Pap Smear 01/14/1992 Cervical Cancer Screening 2001 HPV/Cotest 2001 Mammogram 2011 Pneumococcal Vaccine: 50+ Years (1 of 1 - PCV) 2021 Zoster Vaccines (1 of 2) 2021 COVID-19 Vaccine (3 - 2023-2 5 season) 2024 12/26/2020, 11/28/2020 Influenza Vaccine (#1) 2024 05/03/2018 Tobacco Screening 06/06/2025 06/06/2024 DTaP/Tdap/Td Vaccines (3 - T d or Tdap) 05/06/2034 05/06/2024, 04/26/2019 RSV Patients and Patients Aged 60 years or older (1 - 1-dose 75+ series) 2046 HIB Vaccines Aged Out No longer eligi ble based on patient's age to complete this topic HPV Vaccines Aged Out No longer eligi ble based on patient's age to complete this topic Hepatitis A Vaccines Aged Out No long er eligible based on patient's age to complete this topic IPV Vaccines Aged Out No longer eligi ble based on patient's age to complete this topic Meningococcal Vaccine Aged Out No kenroy daily eligible based on patient's age to complete this topic RSV under 20 months Aged Out No longe r eligible based on patient's age to complete this topic Rotavirus Vaccines Aged Out No longer eligible based on patient's age to complete this topic Insurance HSN PARTIAL
[2024-09-16 13:50] LABS: Alanine Aminotransferase 16 U/L (0-31); Albumin Level 3.9 g/dL (3.5-5.0); Alkaline Phosphatase 63 U/L (39-117); Anion Gap 13 (12-20); Aspartate Amino Transferase 19 U/L (5-31); Bilirubin Total 0.5 mg/dL (0.0-1.0); Blood Urea Nitrogen 9 mg/dL (9-16); Calcium 9.4 mg/dL (8.4-10.2); Carbon Dioxide 27 mmol/L (22-29); Chloride 106 mmol/L (96-108); Cholesterol 139 mg/dL (<200); Estimated Glomerular Filt Rate > 60; Glucose Fasting 85 mg/dL (60-99); HDL Cholesterol 48 mg/dL (>40); LDL Cholesterol Calculated 84 mg/dL (<100); Potassium 4.3 mmol/L (3.3-5.1); Sodium 142 mmol/L (135-145); Total Protein 7.4 g/dL (6.5-8.0); Triglycerides 39 mg/dL (<150)
[2024-09-16 14:00] LABS: Vitamin D 25-OH Total 41.6 ng/mL (>30)
[2024-09-16 14:09] LABS: Folate 11.5 ng/mL (> or = 4.0); Vitamin B12 236 pg/mL (200-900)
== END 2024-09-16 11:56 | disposition home or self-care (01) ==
LOC: HO.LAB 11:55
PROVIDERS: PCP Internal Medicine; Visit Provider Internal Medicine
DX: Z00.00 Encounter for general adult medical examination without abnormal findings (principal); E55.9 Vitamin D deficiency, unspecified; E53.8 Deficiency of other specified B group vitamins; E78.5 Hyperlipidemia, unspecified
CPT/HCPCS: 36415; 80053; 80061; 82306; 82607; 82746

== ENCOUNTER 2024-10-10 11:21 | Outpatient (REF) | payer OTHER, SELFPAY ==
--- OUTSIDE RECORDS SUMMARY | 2024-10-10 14:21 | XMS_ITS | Clinical Summary ---
Author Organization [employer] Address [address] [place] [address] Care Team Providers Care Geological Survey Field Assistant Name Role Phone Unavailable Primary Care Provider [...]
[2024-10-14 09:58] LABS: HPV Genotype 16 Negative (Negative); HPV Genotype 18 Negative (Negative); HPV High Risk Negative (Negative)
== END 2024-10-10 11:22 | disposition home or self-care (01) ==
LOC: HO.LNP 11:21
PROVIDERS: PCP Internal Medicine; Visit Provider Obstetrics & Gynecology
DX: Z01.419 Encounter for gynecological examination (general) (routine) without abnormal findings (principal)
CPT/HCPCS: 87626; 88175

== ENCOUNTER 2024-10-10 11:21 | Outpatient (AMB) | payer OTHER, SELFPAY ==
--- NOTE | 2024-10-10 11:45 | A.OFFVIS_ITS ---
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 No complaints. Last Pap/HPV was in 2016 was unsatisfactory because of scant cellularity, no repeat Pap done since then Last Mammogram was BI-RADS 1 in 06/02 Last Colonoscopy was in 07/27, the recommendation was to repeat in 10 years [facility] Medical History Mild recurrent major depression MARVA (stress urinary incontinence, female) Low back pain Neck pain Palpitations COVID-19 Depression B12 deficiency Surgical History History of colonoscopy History of tubal ligation History of laparoscopic cholecystectomy Family History Father Chronic mental illness Alzheimers disease Mother Hypertension Maternal Aunt Breast cancer Paternal Aunt Cervical cancer Stomach cancer Pancreas cancer Sister Leukemia Social History Household Members: Spouse and Family Housing: Apartment Are you a primary hemodialysis patient care specialist to a significant other at home: No Do you presently have visiting nurse or other home services: No Alcohol intake: current Alcohol intake frequency: holidays/special occasions only Alcohol type: hard liquor Patient Tobacco Use Status: Never used Tobacco e-Cigarette/Vaping Use: Never Used Second Hand Smoke Exposure: No service: No Current occupational status: employed Current occupational exposures/hazards: No Cognitive needs: No Hearing needs: No Vision needs: Yes Female Reproductive History Menstrual Total pregnancies: 2 Full term: 2 Number of Living Children: 2 Date of Mammogram: 06/03/24 Review of Systems Const All systems reviewed & are unremarkable except as noted in HPI and below Card Reports as per HPI Resp Reports as per HPI GI Reports as per HPI and Reports no additional complaints Reports as per HPI Physical Exam Vital Signs: Last Vital Signs BP 110/72 10/10/24 11:46 BMI result Body Mass Index 25.8 Const General: cooperative, healthy appearing and comfortable Chest Chest palpation & inspection: normal inspection of the chest and normal palpation of entire chest wall Breast/axilla inspection: normal inspection of the breasts and normal inspection of the axillae Breast/axilla palpation: normal palpation of the breasts, normal palpation of the axillae and no axillary lymphadenopathy Resp Effort & Inspection: normal respiratory effort Auscultation: clear to auscultation bilaterally Percussion: percussion normal Cardio Palpation: normal PMI Rate: regular rate Rhythm: regular rhythm Heart sounds: no murmurs and no rubs Peripheral pulses: Peripheral pulses 2+ throughout GI Inspection: Yes normal to inspection Palpation (GI): Soft to palpation, nontender, no guarding, not rigid and No hepatosplenomegaly present Percussion: Yes normal to percussion Auscultation: normal bowel sounds Rectal Exam - Female: deferred General: Yes bladder normal to palpation External Female Exam: No lesion Speculum Exam - Vagina: normal appearance of the vagina, normal palpation, normal vaginal discharge and not erythematous Speculum Exam - Cervix: normal appearance of the cervix and normal palpation Bimanual exam- vagina & uterus: normal bimanual exam, normal palpation, uterine size normal, bladder normal to palpation, consistency normal and normal palpation Bimanual Exam- Adnexa, other: normal adnexae, no masses and no tenderness Assessment & Plan Assessment & Plan (1) Well woman exam: Code(s): Z01.419 - Encounter for gynecological examination (general) (routine) without abnormal findings Category: Medical Plan: Co testing done. Counseled the patient about the recommended dietary allowance of 1200 mg of Calcium & 600 IU of vitamin D. Instructions given the patient to schedule next screening Mammogram in 06/03. The patient was instructed to perform monthly self-breast exams and schedule annual exam in a year. All questions answered and the patient verbalized understanding. Coding Level of Care Code New Pt Prev Care 40-64y(88077) Diagnoses Well woman exam Z01.419
[2024-10-10 11:46] VITALS: BP 110/72; BMI 25.8
--- OUTSIDE RECORDS SUMMARY | 2024-10-10 13:28 | XMS_ITS | Clinical Summary ---
Author Organization [employer] Address [address] [place] [address] Care Team Providers Care Loading Dock Hand Name Role Phone Unavailable Primary Care Provider [...]
== END 2024-10-10 12:04 | disposition home or self-care (01) ==
PROVIDERS: PCP Internal Medicine; Visit Provider Obstetrics & Gynecology
DX: Z01.419 Encounter for gynecological examination (general) (routine) without abnormal findings (principal)
CPT/HCPCS: 99386; 99459

== ENCOUNTER 2024-10-17 13:48 | Emergency (ER) | payer OTHER, SELFPAY ==
--- NOTE | ~2024-10-17 | XR_ITS ---
EXAMINATION: XR SHOULDER, RIGHT CLINICAL INFORMATION: atraumatic shoulder pain COMPARISON: None available. TECHNIQUE: AP external rotation, Grashey, scapular Y, and axillary views of the right shoulder. FINDINGS: Normal bone mineralization. No fracture, dislocation, or suspicious bone lesion. Normal alignment. The glenohumeral joint is normal. The AC joint is normal. There is a type II acromion. No undersurface spurring. The subacromial space is preserved. Remainder of the soft tissue and bony structures appear normal. XR/XR shoulder RT min 2V IMPRESSION: Normal right shoulder. Electronically signed by: Shay Diaz MD 10/17/2024 02:49 PM EDT
[2024-10-17 14:13] VITALS: BP 126/80; PULSE 70; RESP 19; O2SAT 98; BMI 25.8
--- NOTE | 2024-10-17 14:17 | ED.EXTPRO ---
HPI - Extremity Problem General Chief complaint: Extremity Injury, Upper Stated complaint: r arm pain Time Seen by Provider: 10/17/24 17:28 Source: patient Limitations: language barrier History of Present Illness ED Provider: Genie Neri PA-C HPI Narrative: 54-year-old female with a history of chronic back and neck pain, depression, who presents with right upper extremity pain x3 days. Pain worse with attempting to raise the arm above the head, the pain is primarily posterolateral shoulder. Denies numbness or tingling of the right upper extremity, no weakness. Patient states she performs a great deal of repetitive activity with a heavy lifting at work. Related Data Previous Rx's ?Medication ?Instructions ?Recorded cholecalciferol (vitamin D3) 25 25 mcg PO DAILY #90 tabs 09/22/22 mcg (1,000 unit) tablet diclofenac potassium 50 mg tablet 50 mg PO BID #30 tabs 03/09/24 methocarbamol 500 mg tablet 500 mg PO TID #30 tabs 03/09/24 cyanocobalamin (vitamin B-12) 1,000 mcg PO BEDTIME #30 tabs 06/09/24 1,000 mcg tablet (Vitamin B-12) loratadine 10 mg tablet (Claritin) 10 mg PO DAILY PRN Allergy 06/09/24 Symptoms 90 days #90 tabs paroxetine HCl 20 mg tablet 20 mg PO DAILY 90 days #90 tabs 06/09/24 meloxicam 15 mg tablet 15 mg PO DAILY #7 tabs 10/17/24 methocarbamol 750 mg tablet 750 mg PO Q8H PRN pain, moderate 10/17/24 #15 tabs Allergies Allergy/AdvReac Type Severity Reaction Status Date / Time No Known Allergies Allergy Verified 10/17/24 14:15 [No Known Allergies*] Review of Systems Review of Systems: Yes all other systems are reviewed and are negative Constitutional: Constitutional: Denies fatigue and Denies fever(s) ENT: Denies neck pain Cardiovascular: Cardiovascular: Denies chest pain Musculoskeletal: Musculoskeletal: Reports arthralgias, Denies joint swelling, Denies neck pain, Denies numbness and Denies tingling Neurologic: Denies numbness and Denies tingling Endocrine: Endocrine: Denies fatigue PMFSH Past Medical History Attestation statement: The following information was validated with the patient. Medical History Mild recurrent major depression MARVA (stress urinary incontinence, female) Low back pain Neck pain Palpitations COVID-19 Depression B12 deficiency Surgical History History of colonoscopy History of tubal ligation History of laparoscopic cholecystectomy Family History Family History Father Chronic mental illness Alzheimers disease Mother Hypertension Maternal Aunt Breast cancer Paternal Aunt Cervical cancer Stomach cancer Pancreas cancer Sister Leukemia Social History Social History Household Members: Spouse and Family Housing: Apartment Are you a primary day care home provider to a significant other at home: No Do you presently have visiting nurse or other home services: No Alcohol intake: current Alcohol intake frequency: holidays/special occasions only Alcohol type: hard liquor Patient Tobacco Use Status: Never used Tobacco e-Cigarette/Vaping Use: Never Used Second Hand Smoke Exposure: No Advance Directives: No Advance Directives Information Provided: No Do you have a plan to hurt others: No Plan service: No Current occupational status: employed Current occupational exposures/hazards: No Cognitive needs: No Hearing needs: No Vision needs: Yes Physical Exam Vital Signs: Vital Signs: Last Vital Signs Pulse 70 10/17/24 14:13 Resp 19 10/17/24 14:13 BP 126/80 10/17/24 14:13 Pulse Ox 98 10/17/24 14:13 O2 Del Method Room Air 10/17/24 14:13 BMI result Body Mass Index 25.8 Const: Other: Alert Orientation/consciousness: patient oriented x3 Resp: Effort & Inspection: normal respiratory effort Cardio: Other: Normal peripheral perfusion Skin: Other: Warm dry no rash Neuro: General: patient oriented x3, gait normal, no focal motor deficits and CN's II-XI intact bilaterally Extrem: Other: No swelling, deformity erythema or warmth of the right shoulder, patient was able to flex and extend from the elbow, minimal range of motion with lateral raise from the shoulder secondary to pain Psych: Other: Cooperative Medical Decision Making Medical Decision Making MDM Narrative: 54-year-old female with a history of chronic back and neck pain, depression, who presents with right upper extremity pain x3 days. Pain worse with attempting to raise the arm above the head, the pain is primarily posterolateral shoulder. Denies numbness or tingling of the right upper extremity, no weakness. Patient states she performs a great deal of repetitive activity with a heavy lifting at work. Problem: Chronic pain History: Per patient I have considered the following differential diagnoses: Fracture, dislocation, sprain, biceps tendinitis, septic joint, cervical radiculopathy Plan: Patient performs repetitive activity at work, which is the likely cause of her discomfort, we will be treating her as a musculoskeletal strain/sprain. X-rays obtained from triage they are unremarkable, she has no arthritic changes noted. She is also not having any radicular symptoms at this time, her pain is not surrounding the bicipital groove to suggest tendonitis. We will send with the an anti-inflammatory and a muscle relaxant, she can follow up with primary care for further assessment. I have independently reviewed the following tests: X-ray right shoulder: XR/XR shoulder RT min 2V IMPRESSION: Normal right shoulder. Discharge Plan Discharge Clinical Impression: Muscle strain of right shoulder Patient Disposition: Home, Self-Care Instructions: Muscle Strain (ED) Additional Instructions: X-ray of the right shoulder was normal, you have no bone abnormality. You are being treated for musculoskeletal strain. See home care instructions. Use the meloxicam as directed, this is an anti-inflammatory take it with food. Use the methocarbamol, this is a muscle relaxant, as needed for further pain, do not drive or operate machinery while taking this medication as it will cause drowsiness. You need to follow up with your primary care provider, they will likely recommend that you attend physical therapy. Call to make an appointment. Prescriptions: New meloxicam 15 mg tablet 15 mg PO DAILY Qty: 7 0RF methocarbamol 750 mg tablet 750 mg PO Q8H PRN (Reason: pain, moderate) Qty: 15 0RF No Action cholecalciferol (vitamin D3) 25 mcg (1,000 unit) tablet 25 mcg PO DAILY Qty: 90 0RF diclofenac potassium 50 mg tablet 50 mg PO BID Qty: 30 0RF Rx Instructions: Take with food. Do not take with any other nonsteroidal anti-inflammatory medications. methocarbamol 500 mg tablet 500 mg PO TID Qty: 30 0RF Rx Instructions: No driving while taking this medication. Do not take with alcohol cyanocobalamin (vitamin B-12) [Vitamin B-12] 1,000 mcg tablet 1,000 mcg PO BEDTIME Qty: 30 0RF loratadine [Claritin] 10 mg tablet 10 mg PO DAILY PRN (Reason: Allergy Symptoms) 90 Days Qty: 90 1RF paroxetine HCl 20 mg tablet 20 mg PO DAILY 90 Days Qty: 90 3RF Stand Alone Forms: Work/School Release Print Language: Estonian
== END 2024-10-17 18:29 | disposition home or self-care (01) ==
PROVIDERS: Emergency Provider Emergency Medicine; PCP Internal Medicine
DX: S46.911A Strain of unspecified muscle, fascia and tendon at shoulder and upper arm level, right arm, initial encounter (principal); X50.0XXA Overexertion from strenuous movement or load, initial encounter; Y93.9 Activity, unspecified; Y92.9 Unspecified place or not applicable; Y99.0 Civilian activity done for income or pay
CPT/HCPCS: 73030; 99281; 99283

== ENCOUNTER → 2024-10-17 14:17 | Outpatient (BNV) | payer OTHER, SELFPAY | PROVIDERS: PCP Internal Medicine; Visit Provider Radiology Diagnostic Radiology | DX: M25.511 Pain in right shoulder (principal) | CPT/HCPCS: 73030 ==

== ENCOUNTER 2024-10-21 08:33 | Outpatient (AMB) | payer OTHER, SELFPAY ==
--- OUTSIDE RECORDS SUMMARY | 2024-10-21 08:46 | XMS_ITS | Clinical Summary ---
Author Organization [employer] Address [address] [place] [address] Care Team Providers Care Group Home Paraprofessional Name Role Phone Unavailable Primary Care Provider [...]
--- NOTE | 2024-10-21 08:47 | A.OFFPC_ITS ---
Vital Signs 10/21/24 08:49 Height 5 ft 6 in Weight 163 lb 6 oz BMI 26.4 BP 130/66 Blood Pressure Location Lt brachial Position Sitting Pulse 69 Pulse Source Pulse Oximeter Temp 97.3 F Temp Source Temporal Artery Scan Pulse Oximetry (%) 99 Oxygen Delivery Method Room Air Intake Visit Reasons: [facility] 10/17 RT Arm pain Intake Note: Patient is here to follow-up after a visit the emergency department at [facility] on 10/17/24 Rn Cvicu Required: Yes Rn Cvicu Language: Ferris Wheel Attendant Name: Donovan ([id number]) Information Interpreted: non-clinical & clinical Gourmet Coffee Attendant: Not Required per policy Accompanied by: Self / Same As Patient Allergies No Known Allergies [No Known Allergies*] Allergy (Verified 10/21/24 08:49) Tobacco use date assessed: 10/21/24 Dental Screening Dental Screen Date: 10/21/24 Did you have a dental visit in the last 12 months?: Yes Did you have a dental problem in the last 6 months where you did not have access to dental care?: No Was dental information given to patient?: Patient has dentist HPI HPI Comments History of Present Illness Details 54 y/o female patient who presents to [facility] for EDF. Pmhx Significant for chronic back and neck pain, and depression. She was admitted at [facility] for right shoulder muscle Strain on 10/17/24 and discharged home the same day. Patient continues to have pain. She was prescribed Muscle relaxants and Meloxicam for pain relief. [facility] Medical History Mild recurrent major depression MARVA (stress urinary incontinence, female) Low back pain Neck pain Palpitations COVID-19 Depression B12 deficiency Surgical History History of colonoscopy History of tubal ligation History of laparoscopic cholecystectomy Family History Father Chronic mental illness Alzheimers disease Mother Hypertension Maternal Aunt Breast cancer Paternal Aunt Cervical cancer Stomach cancer Pancreas cancer Sister Leukemia Social History Household Members: Spouse and Family Housing: Apartment Are you a primary healthcare marketer to a significant other at home: No Do you presently have visiting nurse or other home services: No Alcohol intake: current Alcohol intake frequency: holidays/special occasions only Alcohol type: hard liquor Patient Tobacco Use Status: Never used Tobacco e-Cigarette/Vaping Use: Never Used Second Hand Smoke Exposure: No service: No Current occupational status: employed Current occupational exposures/hazards: No Cognitive needs: No Hearing needs: No Vision needs: Yes (Glasses) Questionnaire PHQ-9 Over the last 2 weeks, how often have you been bothered by any of the following problems? 1. Little interest or pleasure in doing things: not at all 2. Feeling down, depressed, or hopeless: not at all 3. Trouble falling or staying asleep, or sleeping too much: not at all 4. Feeling tired or having little energy: not at all 5. Poor appetite or overeating: not at all 6. Feeling bad about yourself - or that you are a failure or have let yourself or your family down: not at all 7. Trouble concentrating on things, such as reading the newspaper or watching television: not at all 8. Moving or speaking so slowly that other people could have noticed. Or the opposite - being so fidgety or restless that you have been moving around a lot more than usual: not at all 9. Thoughts that you would be better off or of hurting yourself in some way: not at all Total score: 0 Depression Screening Interpretation: Negative Depression Screening Done: Yes Source: Developed by Drs. Chon Curtis, Ca Hillman, Aiden Lew and colleagues, with an educational ortega from [employer]. Thrive Questionnaire Date Thrive assessed: 10/21/24 I am a: Patient What is your living situation today?: I have a steady place to live Within the past 12 months, did the food you bought not last and you didn't have the money to get more?: Never true Within the past 12 months, did you worry whether your food would run out before you got money to buy more?: Never true Do you have trouble paying for medicines?: No Do you have trouble getting transportation to medical appointments?: No Do you have trouble paying your heating and electricity bill?: No Do you have trouble taking care of your child, family member or friend?: No Do you have trouble with day-to-day activities such as bathing, preparing meals, shopping, managing finances, etc.?: No Are you currently unemployed and looking for a job?: No Are you interested in more education?: No Please select the resources that you would like help with: None Currently or been in a relationship where the following occur: No concerns reported THRIVE Score: 0 AUDIT C Alcohol Use Questionnaire (AUDIT-C) 3. How often do you have six or more drinks on one occasion?: Monthly Total Score: 2 NAIDA-7 AMB Questionnaire NAIDA-7 Date NAIDA - 7 assessed: 10/21/24 Feeling nervous, anxious, or on edge: 0 = Not at all Not being able to stop or control worryin = Not at all Worrying too much about different things: 0 = Not at all Trouble relaxin = Not at all Being so restless that it is hard to sit still: 0 = Not at all Becoming easily annoyed or irritable: 0 = Not at all Feeling afraid as if something awful might happen: 0 = Not at all Total NAIDA-7 score (0-4 normal; 5-9 mild; 10-14 moderate; 15-21 severe): 0 Source: Developed by Drs. Chon Curtis, Ca Hillman, Aiden Lew and colleagues, with an educational ortega from [employer]. Physical exam (Primary Care) Vital Signs: Last Vital Signs Temp 97.3 F 10/21/24 08:49 Pulse 69 10/21/24 08:49 BP 130/66 10/21/24 08:49 Pulse Ox 99 10/21/24 08:49 Oxygen Delivery Method Room Air 10/21/24 08:49 BMI result Body Mass Index 26.4 Tobacco/Smoking Status: Tobacco use Status Tobacco use date assessed 10/21/24 10/21/24 08:57 Patient Tobacco Use Status Never used Tobacco 10/21/24 08:57 e-Cigarette/Vaping Use Never Used 10/21/24 08:57 PHQ-9: PHQ-9 Score PHQ-9: Total score 0 10/21/24 09:27 Depression Screening Interpretation: Negative Thrive Assessment: Date of Thrive Assessment Date Thrive assessed 10/21/24 10/21/24 08:57 Currently or been in a relationship where the following occur: No concerns reported Const General: cooperative and no acute distress Orientation/consciousness: patient oriented x3 Neuro General: patient oriented x3, gait normal and moves all extremities Extrem Right upper extremity: shoulder/upper arm Details: normal to inspection, tenderness Location: of the scapula and of the mid-shaft humerus and abnormal ROM (Limited due to Pain) Details: pain with active ROM and pain with passive ROM; no swelling Psych Speech and movement: Normal speech and movement present Coding Level of Care Code Est Pt Level 4 (34196) Diagnoses Muscle strain of right shoulder, initial encounter S46.911A Encounter type: initial encounter Time Spent (min) 20 Assessment & Plan Assessment & Plan (1) Muscle strain of right shoulder: Code(s): S46.911A - Strain of unspecified muscle, fascia and tendon at shoulder and upper arm level, right arm, initial encounter Category: Medical Qualifiers: Encounter type: initial encounter Qualified Code(s): S46.911A - Strain of unspecified muscle, fascia and tendon at shoulder and upper arm level, right arm, initial encounter Plan: Rest Joint Acetaminophen for pain relief Continue taking Meloxicam Ordered PT. Orders: Orders PT Evaluation and Treatment Today S46.911A - Strain of unspecified muscle, fascia and tendon at shoulder and upper arm level, right arm, initial encounter Medications: New acetaminophen 1,000 mg (2 x 500 mg) PO Q6H PRN 30 caps 0RF pain S46.911A - Strain of unspecified muscle, fascia and tendon at shoulder and upper arm level, right arm, initial encounter lidocaine 5% leave on most painful area for up to 12 hrs 1 patch topical DAILY 30 ea 0RF S46.911A - Strain of unspecified muscle, fascia and tendon at shoulder and upper arm level, right arm, initial encounter
[2024-10-21 08:49] VITALS: BP 130/66; PULSE 69; TEMP 36.3; O2SAT 99; BMI 26.4
== END 2024-10-21 09:36 | disposition home or self-care (01) ==
LOC: HO.HMCH 08:34
PROVIDERS: PCP Internal Medicine; Visit Provider Nurse Practitioner Family
DX: S46.911A Strain of unspecified muscle, fascia and tendon at shoulder and upper arm level, right arm, initial encounter (principal)

== ENCOUNTER → 2024-10-21 08:33 | Outpatient (BNVA) | payer OTHER, SELFPAY | PROVIDERS: PCP Internal Medicine; Visit Provider Nurse Practitioner Family ==

== ENCOUNTER 2024-11-09 13:40 | Outpatient (AMB) | payer OTHER, SELFPAY ==
[2024-11-09 13:57] VITALS: BP 120/80; PULSE 70; O2SAT 98; BMI 25.8
--- NOTE | 2024-11-09 13:57 | MHC.OFFWIV ---
Intake Vital Signs 11/09/24 13:57 Height 5 ft 6 in Weight 160 lb BMI 25.8 BP 120/80 Blood Pressure Location Lt brachial Position Sitting Pulse 70 Pulse Source Pulse Oximeter Pulse Oximetry (%) 98 Oxygen Delivery Method Room Air Intake Visit Reasons: EP-nauseas & lt arm/fingers unable to move Intake Note: Patient here for nausea, dizziness which started yesterday. Patient Tobacco Use Status: Never used Tobacco Allergies No Known Allergies [No Known Allergies*] Allergy (Verified 11/09/24 13:58) Do you need a note to return to daycare/school/sports/work: Yes HPI HPI Comments History of Present Illness Details Slovak video chimney repairer used for this visit. History - The patient is a 54-year-old female presenting with nausea and dizziness. - Symptoms correlate with the restarting of paroxetine, initiated three days ago after a one-month hiatus. - Nausea is significant but without vomiting, fevers or diarrhea, paired with dizziness that resembles a floating sensation, particularly exacerbated when lying flat or on her left, but alleviated when lying on the right. - The patient also experiences a sore throat primarily during the night, accompanied by painful swallowing for the past two to three days, although she reports no fever, cough, or congestion. Physical Exam General: Cooperative, healthy appearing, comfortable and no acute distress Orientation/consciousness: Patient oriented x3 Limitations: Slovak speaking Head: Normal to inspection Ears: Hearing grossly normal bilaterally, external ears normal Nose: Normal external nose present, Normal nares present and No nasal discharge present Face and sinus: Normal facial exam Mouth: Normal oral and palatal mucosa present and moist mucous membranes Throat: Yes tonsils normal, Yes uvula midline. Posterior oropharynx erythema Eyes: Appearance normal, both eyes and all related structures Neck: Normal visual inspection Respiratory: Normal respiratory effort, able to speak in complete sentences, no respiratory distress, not tachypneic, no tripod positioning and no use of accessory muscles Skin: No rashes or lesions noted Neuro: Patient oriented x3 Extremities: Normal to inspection and Yes no clubbing, cyanosis or edema [facility] Medical History Mild recurrent major depression MARVA (stress urinary incontinence, female) Low back pain Neck pain Palpitations COVID-19 Depression B12 deficiency Surgical History History of colonoscopy History of tubal ligation History of laparoscopic cholecystectomy Family History Father Chronic mental illness Alzheimers disease Mother Hypertension Maternal Aunt Breast cancer Paternal Aunt Cervical cancer Stomach cancer Pancreas cancer Sister Leukemia Social History Household Members: Spouse and Family Housing: Apartment Are you a primary care coordination manager to a significant other at home: No Do you presently have visiting nurse or other home services: No Alcohol intake: current Alcohol intake frequency: holidays/special occasions only Alcohol type: hard liquor Patient Tobacco Use Status: Never used Tobacco e-Cigarette/Vaping Use: Never Used Second Hand Smoke Exposure: No service: No Current occupational status: employed Current occupational exposures/hazards: No Cognitive needs: No Hearing needs: No Vision needs: Yes (Glasses) Review of Systems Const All systems reviewed & are unremarkable except as noted in HPI and below Physical Exam Vital Signs: Last Vital Signs Pulse 70 11/09/24 13:57 BP 120/80 11/09/24 13:57 Pulse Ox 98 11/09/24 13:57 Oxygen Delivery Method Room Air 11/09/24 13:57 BMI result Body Mass Index 25.8 Assessment & Plan Assessment & Plan (1) Medication side effects: Code(s): T88.7XXA - Unspecified adverse effect of drug or medicament, initial encounter Plan: VSS, pt well appearing and PE unremarkable. The symptoms of nausea and dizziness are likely due to the resumption of paroxetine, as they appeared following the restart of this medication. Continuation of paroxetine is advised, as these side effects usually decrease over time. If the symptoms persist for more than a couple of weeks or are intolerable, please follow up with your PCP. Sent Zofran to [facility] to manage symptoms. Patient was informed and verbally consented to the use of an ambient scribe for clinic note documentation during this visit (2) Seasonal allergies: Code(s): J30.2 - Other seasonal allergic rhinitis Plan: For the sore throat, use of [id number] allergy medications is recommended, as it appears to be related to allergies. I have provided assurance regarding the absence of fever, indicative of non-infectious etiology. Follow-up with her primary care provider is advised if the symptoms persist or worsen. Medications: New ondansetron 4 mg PO Q8H PRN 10 tabs 0RF nausea and vomiting Coding Level of Care Code Est Pt Level 4 (60864) Diagnoses Medication side effects T88.7XXA Seasonal allergies J30.2
--- OUTSIDE RECORDS SUMMARY | 2024-11-09 16:24 | XMS_ITS | Clinical Summary ---
Author Organization [employer] Address [address] [place] [address] Care Team Providers Care Dry Cans Operator Name Role Phone Unavailable Primary Care Provider [...] EDT Gender Identity Choose not to disclose 10:31 AM EDT Sexual Orientation Choose not [...]
== END 2024-11-09 14:23 | disposition home or self-care (01) ==
PROVIDERS: PCP Internal Medicine; Visit Provider Physician Assistant
DX: R11.2 Nausea with vomiting, unspecified (principal); J02.9 Acute pharyngitis, unspecified

== ENCOUNTER 2025-06-05 08:32 | Outpatient (AMB) | payer OTHER, SELFPAY ==
[2025-06-05 08:40] VITALS: BP 110/70; PULSE 69; TEMP 36.2; O2SAT 96; BMI 28.7
--- NOTE | 2025-06-05 08:40 | MHC.PC.OV ---
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 Accompanied by: Self / Same As Patient Allergies No Known Allergies (No Known Allergies*) Allergy (Verified 06/05/25 08:40) Medication List - Last Reconciled 06/05/25 by Ju Hernandez MD acetaminophen 1,000 mg (2 x 500 mg) PO Q6H PRN cyanocobalamin (vitamin B-12) (Vitamin B-12) 1,000 mcg PO BEDTIME diclofenac potassium 50 mg PO BID lidocaine 5% 1 patch topical DAILY loratadine (Claritin) 10 mg PO DAILY PRN 90 days meloxicam 15 mg PO DAILY ondansetron 4 mg PO Q8H PRN paroxetine HCl 20 mg PO DAILY 90 days Tobacco use date assessed: 06/05/25 Dental Screening Dental Screen Date: 06/05/25 Did you have a dental visit in the last 12 months?: Yes Did you have a dental problem in the last 6 months where you did not have access to dental care?: No Was dental information given to patient?: Patient has dentist HPI HPI Comments History of Present Illness Details The patient is a 55-year-old female presenting for an annual physical exam. Her health screenings include a mammogram less than a year ago, a Papanicolaou test this year which was HPV negative, and her last colonoscopy in 2017, with the next one due in 2027. The patient has a history of depression, with a recent PHQ-9 score of 15 indicating moderate severity, for which she takes paroxetine 20 mg and does not see a psychiatrist. She also takes loratadine for allergic rhinitis, vitamin B12, and uses Tylenol, diclofenac, and lidocaine patches as needed. She reports no known drug allergies. Past surgical history is significant for a cholecystectomy and tubal ligation. Her family history includes her father who is and had Alzheimer's disease, and her mother who is alive with hypertension. The patient reports symptoms she attributes to menopause, including excessive sleepiness, lack of motivation, and generalized body aches. She also notes dyspnea, described as a sensation of needing to take very deep breaths. She has a history of arthritis and complains of unbearable chronic pain in her neck and back, which also affects her ribs and the area between her back and knees. [facility] Medical History Mild recurrent major depression MARVA (stress urinary incontinence, female) Low back pain Neck pain Palpitations COVID-19 Depression B12 deficiency Surgical History History of colonoscopy History of tubal ligation History of laparoscopic cholecystectomy Family History Father Chronic mental illness Alzheimers disease Mother Hypertension Maternal Aunt Breast cancer Paternal Aunt Cervical cancer Stomach cancer Pancreas cancer Sister Leukemia Social History Household Members: Spouse and Family Housing: Apartment Are you a primary home care giver to a significant other at home: No Do you presently have visiting nurse or other home services: No Alcohol intake: current Alcohol intake frequency: holidays/special occasions only Alcohol type: hard liquor Patient Tobacco Use Status: Never used Tobacco e-Cigarette/Vaping Use: Never Used Second Hand Smoke Exposure: No service: No Current occupational status: employed Current occupational exposures/hazards: No Cognitive needs: No Hearing needs: No Vision needs: Yes (Glasses) Questionnaire PHQ-9 Over the last 2 weeks, how often have you been bothered by any of the following problems? 1. Little interest or pleasure in doing things: more than half the days 2. Feeling down, depressed, or hopeless: more than half the days 3. Trouble falling or staying asleep, or sleeping too much: more than half the days 4. Feeling tired or having little energy: more than half the days 5. Poor appetite or overeating: nearly every day 6. Feeling bad about yourself - or that you are a failure or have let yourself or your family down: not at all 7. Trouble concentrating on things, such as reading the newspaper or watching television: more than half the days 8. Moving or speaking so slowly that other people could have noticed. Or the opposite - being so fidgety or restless that you have been moving around a lot more than usual: more than half the days 9. Thoughts that you would be better off or of hurting yourself in some way: not at all Total score: 15 Depression Screening Interpretation: Positive (no suicidal thoughts) Depression Screening Follow-up: Existing condition and Follow-up Visit Requested Depression Screening Done: Yes Source: Developed by Drs. Chon Curtis, Ca Hillman, Aiden Lew and colleagues, with an educational ortega from [employer]. Thrive Questionnaire Date Thrive assessed: 10/21/24 I am a: Patient What is your living situation today?: I do not have a steady places to live I am temporarily staying with others Within the past 12 months, did the food you bought not last and you didn't have the money to get more?: Never true Within the past 12 months, did you worry whether your food would run out before you got money to buy more?: Never true Do you have trouble paying for medicines?: No Do you have trouble getting transportation to medical appointments?: No Do you have trouble paying your heating and electricity bill?: No Do you have trouble taking care of your child, family member or friend?: No Do you have trouble with day-to-day activities such as bathing, preparing meals, shopping, managing finances, etc.?: No Are you currently unemployed and looking for a job?: Yes Are you interested in more education?: No Please select the resources that you would like help with: Housing/Snf Currently or been in a relationship where the following occur: No concerns reported THRIVE Score: 1 AUDIT C Alcohol Use Questionnaire (AUDIT-C) 1. How often do you have a drink containing alcohol?: Monthly or less 2. How many drinks containing alcohol do you have on a typical day when you are drinking?: 1 or 2 3. How often do you have six or more drinks on one occasion?: Never Total Score: 1 Score Reviewed/Action Taken: No NAIDA-7 AMB Questionnaire NAIDA-7 Date NAIDA - 7 assessed: 10/21/24 Feeling nervous, anxious, or on edge: 0 = Not at all Not being able to stop or control worryin = Several days Worrying too much about different things: 1 = Several days Trouble relaxin = Several days Being so restless that it is hard to sit still: 0 = Not at all Becoming easily annoyed or irritable: 0 = Not at all Feeling afraid as if something awful might happen: 0 = Not at all Total NAIDA-7 score (0-4 normal; 5-9 mild; 10-14 moderate; 15-21 severe): 3 Source: Developed by Drs. Chon Curtis, Ca Hillman, Aiden Lew and colleagues, with an educational ortega from [employer]. NAIDA-7 Assessment Billing NAIDA-7 Assessment Tool: NAIDA-7 Assessment 30223 Review of Systems Const All systems reviewed & are unremarkable except as noted in HPI and below Card Denies chest pain at rest, Denies chest pain with activity, Denies edema, Denies irregular heart rhythm, Denies claudication, Denies dyspnea, Denies dyspnea on exertion, Denies orthopnea, Denies paroxysmal nocturnal dyspnea and Denies slow heart rate Resp Denies cough, Denies dyspnea and Denies dyspnea on exertion Musc Denies abnormal gait, Denies atrophy, Denies deformity and Denies limited range of motion Skin/Breast Denies bleeding lesions, Denies changing lesions and Denies rash Neuro Denies abnormal gait and Denies lack of coordination Physical exam (Primary Care) Vital Signs: Last Vital Signs Temp 97.1 F 06/05/25 08:40 Pulse 69 06/05/25 08:40 BP 110/70 06/05/25 08:40 Pulse Ox 96 06/05/25 08:40 Oxygen Delivery Method Room Air 06/05/25 08:40 BMI result Body Mass Index 28.7 Tobacco/Smoking Status: Tobacco use Status Tobacco use date assessed 06/05/25 06/05/25 08:44 Patient Tobacco Use Status Never used Tobacco 06/05/25 08:44 e-Cigarette/Vaping Use Never Used 06/05/25 08:44 PHQ-9: PHQ-9 Score PHQ-9: Total score 15 06/05/25 09:11 Depression Screening Interpretation: Positive (no suicidal thoughts) Depression Screening Follow-up: Existing condition and Follow-up Visit Requested Thrive Assessment: Date of Thrive Assessment Date Thrive assessed 10/21/24 06/05/25 08:44 Currently or been in a relationship where the following occur: No concerns reported HENMT Head: Yes normal to inspection, Yes normocephalic and Yes atraumatic Ears: external ears normal Eyes General: appearance normal, both eyes and all related structures Eyelids: Yes eyelids normal Conjunctivae: conjunctivae normal Neck Neck: Yes normal visual inspection and Yes supple Resp Effort & Inspection: normal respiratory effort Auscultation: clear to auscultation bilaterally Cardio Jugular venous distension: no JVD Rate: regular rate Rhythm: regular rhythm Heart sounds: S1 normal heart sound present and S2 normal heart sound present GI Inspection: Yes normal to inspection Palpation (GI): Soft to palpation and nontender Auscultation: normal bowel sounds Skin General skin exam: no rashes or lesions noted Neuro General: no focal motor deficits Extrem General: Yes full ROM Psych Appearance: grossly normal Office Procedures Flu Questionnaire Does the patient have a severe egg allergy?: No Does the patient have severe life threatening allergies?: No Does the patient have a fever or illness today?: No Has the patient ever had Guillain-[place] Syndrome?: No Has the patient ever had any past reaction to a flu shot?: No Immunizations Fluarix [id number] (PF) 45 mcg (15 mcg x 3)/0.5 mL IM syringe Performing Provider: Ju Hernandez MD Performing Location: [facility] Administered by: KD Russell on 06/05/25 09:10 Dose Route Admin Location Dispensed Lot Number Expiration Date [facility] [employer] 0.5 mL IM Right Deltoid 0.5 mL [id number] 02/06/26 53447-825-05 [employer] [facility] VIS Given Date VIS Provided VIS Publication Date 06/05/25 Single Vaccine 24 Eligibility Eligibility Date Funding Source Not [facility] Eligible 06/05/25 Private Coding Level of Care Code Est Pt Level 3 (25299) Est Pt Prev Care 40-64y(50117) Diagnoses Physical exam Z00.00 Neck pain M54.2 Low back pain without sciatica, unspecified back pain laterality, unspecified chronicity M54.5 Chronicity: unspecified Back pain laterality: unspecified Sciatica presence: without sciatica Thoracic spine pain M54.6 Mild recurrent major depression F33.0 Additional Codes NAIDA-7 Assessment Billing - NAIDA-7 Assessment Tool: NAIDA-7 Assessment 94980 ([id number]) Time Spent (min) 33 Assessment & Plan Assessment & Plan (1) Physical exam: Code(s): Z00.00 - Encounter for general adult medical examination without abnormal findings Category: Medical (2) Neck pain: Code(s): M54.2 - Cervicalgia Category: Medical (3) Low back pain: Code(s): M54.5 - Low back pain Category: Medical Qualifiers: Chronicity: unspecified Back pain laterality: unspecified Sciatica presence: without sciatica Qualified Code(s): M54.5 - Low back pain (4) Thoracic spine pain: Code(s): M54.6 - Pain in thoracic spine Category: Medical (5) Mild recurrent major depression: Code(s): F33.0 - Major depressive disorder, recurrent, mild Category: Medical Plan Plan 1. Annual Physical Exam The patient's health maintenance screenings were reviewed; mammogram and Pap smear are up to date, and her next colonoscopy is due in 2027. An influenza vaccine will be administered. Labs to check vitamin B12 and vitamin D levels will be ordered to evaluate for potential causes of her fatigue. 2. Chronic Pain & Arthritis The patient complains of unbearable chronic pain in her neck and back, which is possibly related to her known history of arthritis. A referral will be made to pain management for further evaluation and treatment. 3. Depression The patient's PHQ-9 score of 15 suggests moderate depression. She will continue her current regimen of paroxetine 20 mg. Orders: Orders Vitamin B12 and Folate Today E53.8 - Deficiency of other specified B group vitamins Vitamin D 25-OH Total Today E55.9 - Vitamin D deficiency, unspecified Influenza [id number] Immunization Today Z23 - Encounter for immunization Referrals Pain Management Referral M54.2 - Cervicalgia, M54.5 - Low back pain, M54.6 - Pain in thoracic spine
--- OUTSIDE RECORDS SUMMARY | 2025-06-05 08:53 | XMS_ITS | Clinical Summary ---
Author Organization [employer] Address [address] [place] [address] [address] [place] [address] Care Team Providers Care Program Services Planner Name Role Phone Unavailable Primary Care Provider [...] Screening 1971 SDOH Screening 1971 Sigmoidoscopy 1971 Disability Screening 1971 Alcohol/Substance Use Screening 1983 Hepatitis C Screening 1989 Hepatitis B Vaccines (1 of 3 - 19+ 3-dose series) 1990 Pap Smear 01/14/1992 Cervical Cancer Screening 2001 HPV/Cotest 2001 Mammogram 2011 Pneumococcal Vaccine: 50+ Years (1 of 1 - PCV) 2021 Zoster Vaccines (1 of 2) 2021 COVID-19 Vaccine (3 - 2024-2 6 season) 2025 12/26/2020, 11/28/2020 Influenza Vaccine (#1) 2025 05/03/2018 Tobacco Screening 06/06/2025 06/06/2024 DTaP/Tdap/Td Vaccines [...] patient's age to complete this topic Meningococcal B Vaccine Aged Out No l onger eligible based on patient's age to complete [...]
== END 2025-06-05 09:12 | disposition home or self-care (01) ==
LOC: HO.HMCH 08:33
PROVIDERS: PCP Internal Medicine; Visit Provider Internal Medicine
DX: Z00.00 Encounter for general adult medical examination without abnormal findings (principal); M54.2 Cervicalgia; M54.50 Low back pain, unspecified; M54.6 Pain in thoracic spine; F33.0 Major depressive disorder, recurrent, mild; Z23 Encounter for immunization

== ENCOUNTER → 2025-06-05 08:32 | Outpatient (BNVA) | payer OTHER, SELFPAY | PROVIDERS: PCP Internal Medicine; Visit Provider Internal Medicine | DX: Z00.00 Encounter for general adult medical examination without abnormal findings (principal); R06.00 Dyspnea, unspecified; M54.2 Cervicalgia; M25.561 Pain in right knee; M25.562 Pain in left knee; M54.50 Low back pain, unspecified; M54.6 Pain in thoracic spine; F33.0 Major depressive disorder, recurrent, mild; Z78.0 Asymptomatic menopausal state; Z23 Encounter for immunization | CPT/HCPCS: 90471; 90656; 96127; 99396 ==

== ENCOUNTER 2025-07-13 08:52 | Outpatient (REF) | payer OTHER, SELFPAY ==
--- NOTE | ~2025-07-13 | XR_ITS ---
EXAMINATION: XR THORACIC SPINE CLINICAL INFORMATION: M54.6 - Pain in thoracic spine COMPARISON: Correlated to chest x-ray dated December 30, 2022 TECHNIQUE: AP lateral and swimmer's projection. FINDINGS: Mild multilevel endplate sclerosis and small marginal osteophyte formation with decreased intervertebral disc height. No acute cortical disruption or gross malalignment. No lytic or blastic lesions. Vascular clips right upper quadrant abdomen likely prior cholecystectomy. XR/XR cervical spine 4V IMPRESSION: Mild multilevel spondylosis. EXAMINATION: XR CERVICAL SPINE CLINICAL INFORMATION: M54.2 -cervicalgia COMPARISON: October 2022 TECHNIQUE: AP, lateral and oblique views. Atlantoodontoid view. FINDINGS: Craniocervical junction is intact. Mild decreased intervertebral disc height C5-6. Mild left neuroforamina narrowing at C4-5, C5-6 and C6-7, secondary to posterior marginal osteophyte formation. Mild right neuroforamina narrowing at C6-7 secondary to posterior osteophyte formation. No gross malalignment. No lytic or blastic lesions. IMPRESSION: Mild multilevel cervical spondylosis C4-5 to C6-7. Electronically signed by: Maurilio Mercado MD 07/13/2025 10:12 AM EST
--- NOTE | ~2025-07-13 | XR_ITS ---
EXAMINATION: XR THORACIC SPINE CLINICAL INFORMATION: M54.6 - Pain in thoracic spine COMPARISON: Correlated to chest x-ray dated December 30, 2022 TECHNIQUE: AP lateral and swimmer's projection. FINDINGS: Mild multilevel endplate sclerosis and small marginal osteophyte formation with decreased intervertebral disc height. No acute cortical disruption or gross malalignment. No lytic or blastic lesions. Vascular clips right upper quadrant abdomen likely prior cholecystectomy. XR/XR thoracic spine 2V IMPRESSION: Mild multilevel spondylosis. EXAMINATION: XR CERVICAL SPINE CLINICAL INFORMATION: M54.2 -cervicalgia COMPARISON: October 2022 TECHNIQUE: AP, lateral and oblique views. Atlantoodontoid view. FINDINGS: Craniocervical junction is intact. Mild decreased intervertebral disc height C5-6. Mild left neuroforamina narrowing at C4-5, C5-6 and C6-7, secondary to posterior marginal osteophyte formation. Mild right neuroforamina narrowing at C6-7 secondary to posterior osteophyte formation. No gross malalignment. No lytic or blastic lesions. IMPRESSION: Mild multilevel cervical spondylosis C4-5 to C6-7. Electronically signed by: Maurilio Mercado MD 07/13/2025 10:12 AM EST
[2025-07-13 12:34] LABS: Folate 10.5 ng/mL (> or = 4.0); Vitamin B12 203 pg/mL (200-900)
== END 2025-07-13 08:53 | disposition home or self-care (01) ==
LOC: HO.LAB 08:52
PROVIDERS: Absent Provider Internal Medicine; PCP Internal Medicine; Visit Provider Nurse Practitioner Family
DX: E53.8 Deficiency of other specified B group vitamins (principal); E55.9 Vitamin D deficiency, unspecified; M54.2 Cervicalgia; M54.6 Pain in thoracic spine; S00.12XA Contusion of left eyelid and periocular area, initial encounter; H57.9 Unspecified disorder of eye and adnexa; M47.812 Spondylosis without myelopathy or radiculopathy, cervical region; M62.838 Other muscle spasm
CPT/HCPCS: 36415; 72050; 72070; 82306; 82607; 82746; 99212

== ENCOUNTER 2025-07-13 08:52 | Outpatient (AMB) | payer OTHER, SELFPAY ==
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
[2025-07-13 09:05] VITALS: BP 122/70; PULSE 77; O2SAT 98; BMI 29.6
--- OUTSIDE RECORDS SUMMARY | 2025-07-13 09:35 | XMS_ITS | Clinical Summary ---
Author Organization [employer] Address [address] [place] [address] [address] [place] [address] Care Team Providers Care Bogger Operator Name Role Phone Unavailable Primary Care [...]
== END 2025-07-13 09:25 | disposition home or self-care (01) ==
LOC: HO.PMC 08:53
PROVIDERS: PCP Internal Medicine; Visit Provider Nurse Practitioner Family
DX: M54.2 Cervicalgia (principal); M54.6 Pain in thoracic spine; M62.838 Other muscle spasm; M47.812 Spondylosis without myelopathy or radiculopathy, cervical region
CPT/HCPCS: 99214

== ENCOUNTER → 2025-07-13 09:52 | Outpatient (BNV) | payer OTHER, SELFPAY | PROVIDERS: Absent Provider Internal Medicine; PCP Internal Medicine; Visit Provider Radiology Diagnostic Radiology | DX: M47.812 Spondylosis without myelopathy or radiculopathy, cervical region (principal); M47.814 Spondylosis without myelopathy or radiculopathy, thoracic region | CPT/HCPCS: 72050; 72070 ==